=== PATIENT | male | born 1950 | race Two or more races ===

== ENCOUNTER 2020-01-22 11:08 | Inpatient (IN) | payer OTHER ==
[~2020-01-22] VITALS: Ht 162.6 cm; Wt 74.8 kg
--- NOTE | 2020-01-22 11:15 | NUR ---
sent by PMD Dr. Donato for paracentesis. Patient a/ox4, breathing even and unlabored, no sob noted. Needs attended. Kept comfortable.
[2020-01-22] MEDS ORDERED: ONDANSETRON HCL/PF 4 MG/2 ML VIAL ONE (11:41)
--- NOTE | 2020-01-22 11:51 | NUR ---
PATIENT TAKEN TO CT
[2020-01-22 11:55] LABS: BASOPHILS # (AUTO) 0.1 /CMM (0.0-0.2); BASOPHILS % (AUTO) 0.2 % (0.0-2.0); EOSINOPHILS % (AUTO) 0.1 % (0.0-6.0); HEMATOCRIT 25 % (39-51); HEMOGLOBIN 7.5 g/dL (13.5-17.5); LYMPHOCYTES # (AUTO) 4.1 /CMM (0.8-4.8); LYMPHOCYTES % (AUTO) 12.3 % (20.0-44.0); MEAN CORPUSCULAR HGB CONC 30 g/dl (31.0-36.0); MEAN CORPUSCULAR VOLUME 109 fL (80-96); MONOCYTES # (AUTO) 2.1 /CMM (0.1-1.30); MONOCYTES % (AUTO) 6.3 % (2.0-12.0); NEUTROPHILS # (AUTO) 27.2 /CMM (1.8-8.9); NEUTROPHILS % (AUTO) 81.1 % (43.0-81.0); PLATELET COUNT (AUTO) 84 /CMM (150-450); RED BLOOD CELL COUNT(AUTO) 2.26 MIL/uL (4.5-6.0)
[2020-01-22 11:59] LABS: WHITE BLOOD COUNT (AUTO) 33.5 K/uL (4.3-11.0)
[2020-01-22] MEDS ORDERED: IV NS 0.9% 1,000 ML BAG IV ONE (12:00)
[2020-01-22] MEDS ORDERED: ONDANSETRON HCL/PF 4 MG/2 ML VIAL IVP ONE (12:00)
[2020-01-22 12:07] LABS: CALCIUM, SERUM 8.6 mg/dL (8.5-10.1); CREATININE 1.3 mg/dL (0.6-1.3); POTASSIUM 4.9 mmol/L (3.5-5.1)
[2020-01-22 12:22] LABS: ALBUMIN 2.3 g/dL (3.4-5.0); BILIRUBIN,DIRECT 0.3 mg/dL (0.0-0.2); BILIRUBIN,TOTAL 0.6 mg/dL (0.2-1.0)
[2020-01-22 13:02] LABS: BAND % (MANUAL) 1 % (0.0-5.0); LYMPHOCYTES % (MANUAL) 12 % (16-48); MONOCYTES % (MANUAL) 4 % (0-11.0); NEUTROPHILS % (MANUAL) 83 (42-76)
--- NOTE | 2020-01-22 13:45 | NUR ---
BLOOD TRANSFUSION STARTED.
--- NOTE | 2020-01-22 14:01 | NUR ---
BLOOD TRANSFUSION INFUSING NO ADVERSE REACTION. VITALS STABLE. PATIENT DENIES PAIN AT THIS TIME.
--- NOTE | 2020-01-22 15:52 | NUR ---
REPORT GIVEN TO BHUPINDER LUGO FOR SURESH. PATIENT TRANSFERRED TO ROOM 315-1 VIA ACLS PROTOCOL. NO DISTRESS NOTED.
[2020-01-22 16:00] VITALS: BP 142/96
--- NOTE | 2020-01-22 16:00 | NUR ---
ADMIT FROM ER PT CAME UP TO UNIT FROM ER AT 1600. BROUGHT IN VIA GURNEY BY ER-RN. PT 'S ADMITTING DX IS ANEMIA AND ASCITES REQUIRING PARACENTESIS. HX OF METASTATIC PANCREATIC CANCER ON CHEMOTHERAPY. PT STATES THAT HIS LAST CHEMO WAS ON 01/15/20. HX OF TRIPLE BYPASS SURGERY, DM, AND HIV POSITIVE STATUS. PT ALLERGIC TO SULFA. AOX4. VERY PLEASANT. NO CARDIAC OR RESPIRATORY DISTRESS NOTED. NO SOB NOTED. SATURATING WELL ON ROOM AIR WITH 97% O2 SAT. PT WAS HOOKED UP ON CARDIAC TELE MONITOR, SHOWING SINUS RHYTHM WITH HR OF 80S. CONTINENT OF BOWEL AND BLADDER. SKIN/BODY CHECK DONE. PT WAS NOTED WITH DRY PATCHES ON SKIN ON THE R AND L FOOT WELL BILATERAL LOWER EXT +2 PITTING EDEMA. PT IS AMBULATORY WITH USE OF CANE. IV ACCESS NOTED ON RFA G20. PER ER NURSE PT RECEIVED 1 UNIT OF PRBCS AT THE ER. PT ON SOFT DIET. NO COMPLAINTS OF PAIN OR DISCOMFORT AT THIS TIME. PT HAS NO OTHER COMPLAINTS. ORIENTED PT TO UNIT AND ROOM. SAFETY PRECAUTIONS IN PLACE. BED LOCKED AND IN LOW POSITION. SIDE RAILS UP X2. BED ALARM ON. CALL LIGHT WITHIN REACH. INSTRUCTED AND ADVISED PT TO UTILIZE CALL BUTTON AND ASK FOR HELP FROM NURSING STAFF IF WANTING TO GET UP FROM BED. PT AGREED. WILL CONTINUE TO MONITOR.
--- NOTE | 2020-01-22 16:15 | NUR ---
NOTIFIED NOTIFIED DR. CHICHI BAZZI OF PTS ARRIVAL TO THE UNIT. PER HE WILL PUT ADMITTING ORDERS IN.
[2020-01-22 16:36] VITALS: BP 142/66
[2020-01-22] MEDS ORDERED: Z GUARD REMEDY 2 OZ OINT TP PRN (18:30)
[2020-01-22] MEDS ORDERED: ACETAMINOPHEN 325 MG TABLET PO PRN (18:30)
[2020-01-22] MEDS ORDERED: ONDANSETRON HCL/PF 4 MG/2 ML VIAL IVP PRN (18:30)
[2020-01-22] MEDS ORDERED: ENOXAPARIN SODIUM 40 MG/0.4 ML DISP.SYRIN SQ SCH (18:30)
--- NOTE | 2020-01-22 19:30 | NUR ---
BUTTON MACHINE OPERATOR CLOSING NOTES PT IN BED AWAKE ALERT AND ORIENTED X4. RESTING COMFORTABLY IN BED. NO CARDIAC OR RESPIRATORY DISTRESS NOTED. NO SOB NOTED. NO COMPLAINTS OF PAIN OR DISCOMFORT. ON TELE GLOBE TESTER SHOWING SINUS RHYTHM WITH HR OF 80S. IV ACCESS NOTED ON R FOREARM G20. INTACT AND PATENT AND FLUSHING WELL. NO S/S OF INFECTION OR INFILTRATION NOTED. SAFETY PRECAUTIONS IN PLACE. BED LOCKED AND IN LOW POSITION. SIDE RAILS UP. BED ALARM ON. CALL LIGHT WITHIN REACH. ENDORSED TO MACHINE PROGRAMMER NURSE.
--- NOTE | 2020-01-22 19:45 | NUR ---
RN OPEN NOTES PATIENT IS LAYING IN BED. NO COMPLAINTS OF PAIN AT THE MOMENT. ON RA, NO SOB/ ACUTE RESPIRATORY DISTRESS NOTED. BED IS IN LOWEST LOCKED POSITION WITH SIDE RAILS UP X2, SEMI FOWLERS. CALL LIGHT IS WITHIN REACH. WILL CONTINUE TO MONITOR.
[2020-01-22 20:00] VITALS: BP 144/89
[2020-01-23] VITALS: BP 140/81
[2020-01-23 04:00] VITALS: BP 136/82
--- NOTE | 2020-01-23 06:42 | NUR ---
RN CLOSE NOTES PATIENT IS LAYING IN BED. A/O X4. ON RA, NO SOB/ ACUTE RESPIRATORY DISTRESS NOTED. IV ON R FOREARM #20G IS PATENT AND INTACT. NO COMPLAINTS OF PAIN AT THE MOMENT. AMBULATORY WITH CANE/ ASSISTANCE. BED IS IN LOWEST LOCKED POSITION WITH SIDE RAILS UP X2, SEMI FOWLERS. CALL LIGHT IS WITHIN REACH. WILL ENDORSE TO AM NURSE.
[2020-01-23] MEDS ORDERED: AMLO2.5T2 PO (07:03)
[2020-01-23] MEDS ORDERED: LEVO137T24 PO (07:03)
[2020-01-23] MEDS ORDERED: LOSA25TA27 PO (07:03)
[2020-01-23] MEDS ORDERED: CARV3.122 PO (07:03)
--- NOTE | 2020-01-23 07:30 | NUR ---
CHIEF DRAFTER NOTES PT IN BED, AWAKE, ALERT AND ORIENTED, NO COMPLAINT OF PAIN, RESPIRATIONS NORMAL, CALL LIGHT WITHIN REACH, PLAN FOR US GUIDED PARACENTESIS THIS MORNING, PT INFORMED, NEEDS ATTENDED.
[2020-01-23 08:00] VITALS: BP 136/83
[2020-01-23 08:30] LABS: BASOPHILS % (AUTO) 0.2 % (0.0-2.0); EOSINOPHILS % (AUTO) 0.2 % (0.0-6.0); HEMATOCRIT 27 % (39-51); HEMOGLOBIN 8.5 g/dL (13.5-17.5); LYMPHOCYTES # (AUTO) 4.1 /CMM (0.8-4.8); MEAN CORPUSCULAR HGB CONC 32 g/dl (31.0-36.0); MEAN CORPUSCULAR VOLUME 103 fL (80-96); MONOCYTES # (AUTO) 2.3 /CMM (0.1-1.30); MONOCYTES % (AUTO) 9.2 % (2.0-12.0); NEUTROPHILS # (AUTO) 18.9 /CMM (1.8-8.9); NEUTROPHILS % (AUTO) 74.4 % (43.0-81.0); PLATELET COUNT (AUTO) 83 /CMM (150-450); RED BLOOD CELL COUNT(AUTO) 2.61 MIL/uL (4.5-6.0); WHITE BLOOD COUNT (AUTO) 25.4 K/uL (4.3-11.0)
[2020-01-23 08:33] LABS: ALBUMIN 2.2 g/dL (3.4-5.0); BILIRUBIN,TOTAL 0.6 mg/dL (0.2-1.0); CALCIUM, SERUM 8.5 mg/dL (8.5-10.1); CREATININE 1.2 mg/dL (0.6-1.3); MAGNESIUM 1.9 mg/dL (1.8-2.4); PHOSPHORUS 4.2 mg/dL (2.5-4.9); POTASSIUM 4.8 mmol/L (3.5-5.1); TOTAL PROTEIN, SERUM 5.7 g/dL (6.4-8.2)
[2020-01-23 09:58] LABS: BAND % (MANUAL) 5 % (0.0-5.0); LYMPHOCYTES % (MANUAL) 12 % (16-48); MONOCYTES % (MANUAL) 6 % (0-11.0); NEUTROPHILS % (MANUAL) 77 (42-76)
--- NOTE | 2020-01-23 10:17 | NUR ---
SWITCHBOARD MECHANIC NOTES PT COMPLETED US GUIDED PARACENTESIS, TOLERATED WELL, OBTAINED 5300 ML OF CLEAR, SURAJ COLORED FLUID, SENT SPECIMEN TO LAB FOR ANALYSIS, PER PT HE IS DIABETIC, DR. BAZZI INFORMED, ORDERED ACCUCHECKS WITH SLIDING SCALE AND LANTUS AT BEDTIME.
[2020-01-23] MEDS ORDERED: DEXTROSE 50%-WATER 50 ML DISP.SYRIN IV PRN (10:30)
[2020-01-23] MEDS ORDERED: INSULIN REGULAR, HUMAN 100 UNIT/ML 3 ML VIAL SQ PRN (10:30)
[2020-01-23 12:00] VITALS: BP 127/83
[2020-01-23] MEDS ORDERED: BLOOD SUGAR DIAGNOSTIC 1 EACH STRIP IN SCH (12:00)
[2020-01-23 16:00] VITALS: BP 135/82
--- NOTE | 2020-01-23 17:37 | NUR ---
BEAMING INSPECTOR NOTES PT AWAKE, SITTING IN BED, NO COMPLAINT OF PAIN OR ANY DISCOMFORT, NOT IN DISTRESS, RECEIVED DISCHARGE ORDER FROM DR. BAZZI, PT INFORMED, DISCHARGE AND MEDICATION INSTRUCTIONS GIVEN TO PT, PT TO FOLLOW UP WITH DR. DUKE, VERBALIZED UNDERSTANDING, BELONGINGS ACCOUNTED FOR, ASSISTED PT TO HOSPITAL LOBBY VIA WHEELCHAIR, PICKED UP BY FAMILY MEMBER VIA PRIVATE CAR, LEFT IN STABLE CONDITION.
[2020-01-23] MEDS ORDERED: INSULIN GLARGINE, 100 UNIT/ML CARTRIDGE SQ SCH (22:00)
== END 2020-01-23 17:30 | disposition home or self-care (01) | DRG 436 ==
LOC: ER 11:08 → TELE 14:50
PROVIDERS: ADMIT Nurse Practitioner Acute Care; ATTEND Nurse Practitioner Acute Care
PROC: 30233N1 Transfusion of Nonautologous Red Blood Cells into Peripheral Vein, Percutaneous Approach (ICD-10-PCS; principal; 2020-01-22)
PROC: 0W9G3ZZ Drainage of Peritoneal Cavity, Percutaneous Approach (ICD-10-PCS; 2020-01-23)
DX: C25.9 Malignant neoplasm of pancreas, unspecified (principal); D68.59 Other primary thrombophilia; E44.1 Mild protein-calorie malnutrition; R18.8 Other ascites; D64.81 Anemia due to antineoplastic chemotherapy; D69.6 Thrombocytopenia, unspecified; I25.10 Atherosclerotic heart disease of native coronary artery without angina pectoris; D72.829 Elevated white blood cell count, unspecified; Z95.1 Presence of aortocoronary bypass graft; Z92.21 Personal history of antineoplastic chemotherapy; E11.9 Type 2 diabetes mellitus without complications; I10 Essential (primary) hypertension; Z88.2 Allergy status to sulfonamides; D63.0 Anemia in neoplastic disease; D75.89 Other specified diseases of blood and blood-forming organs
CPT/HCPCS: 36415; 76942-TC; 80048-TC; 80053-TC; 80061-TC; 80076-TC; 82962-TC; 83690-TC; 83735-TC; 84100-TC; 85025-TC; 85730-TC; 86850-TC; 86921-TC; 87070-TC; 87081-TC; 89051-TC; G0378; J1815; J2405; J7030; J7040; P9016-BL

== ENCOUNTER 2020-03-21 15:13 | Inpatient (IN) | payer OTHER ==
[~2020-03-21] VITALS: Ht 165.1 cm; Wt 74.8 kg
[~2020-03-21 15:13] MED LIST: AMLO2.5T2 PO; CARV3.122 PO; LEVO137T24 PO; LOSA25TA27 PO
--- NOTE | 2020-03-21 15:30 | NUR ---
patient michael from Dr. Donato office c/o generalized weakness. Connected to the monitor and pulse ox. kept comfortable, will continue to monitor accordingly.
[2020-03-21] MEDS ORDERED: RALT400T PO (15:55)
[2020-03-21] MEDS ORDERED: AMLO10TA4 PO (15:55)
[2020-03-21] MEDS ORDERED: CARV3.122 PO (15:55)
[2020-03-21] MEDS ORDERED: LEVO200T8 PO (15:55)
[2020-03-21] MEDS ORDERED: LOSA100T31 PO (15:55)
[2020-03-21] MEDS ORDERED: IV NS 0.9% 500 ML BAG IV ONE ×2 (16:00→19:00)
[2020-03-21] MEDS ORDERED: ABACAVIR PO (16:00)
[2020-03-21 16:18] LABS: BASOPHILS % (AUTO) 0.1 % (0.0-2.0); EOSINOPHILS % (AUTO) 0.1 % (0.0-6.0); HEMATOCRIT 30 % (39-51); HEMOGLOBIN 9.4 g/dL (13.5-17.5); LYMPHOCYTES # (AUTO) 1.4 /CMM (0.8-4.8); LYMPHOCYTES % (AUTO) 7.4 % (20.0-44.0); MEAN CORPUSCULAR HGB CONC 31 g/dl (31.0-36.0); MEAN CORPUSCULAR VOLUME 107 fL (80-96); MONOCYTES # (AUTO) 0.1 /CMM (0.1-1.30); MONOCYTES % (AUTO) 0.6 % (2.0-12.0); NEUTROPHILS # (AUTO) 16.9 /CMM (1.8-8.9); NEUTROPHILS % (AUTO) 91.8 % (43.0-81.0); PLATELET COUNT (AUTO) 246 /CMM (150-450); WHITE BLOOD COUNT (AUTO) 18.4 K/uL (4.3-11.0)
[2020-03-21 16:25] LABS: CALCIUM, SERUM 7.6 mg/dL (8.5-10.1); CREATININE 2.3 mg/dL (0.6-1.3); POTASSIUM 5.5 mmol/L (3.5-5.1)
[2020-03-21 16:37] LABS: BILIRUBIN,DIRECT 0.5 mg/dL (0.0-0.2); BILIRUBIN,TOTAL 0.7 mg/dL (0.2-1.0)
[2020-03-21 16:38] LABS: ALBUMIN 1.3 g/dL (3.4-5.0)
--- NOTE | 2020-03-21 16:49 | NUR ---
sent body fluids (ascites) to lab
[2020-03-21 17:03] LABS: BAND % (MANUAL) 6 % (0.0-5.0); LYMPHOCYTES % (MANUAL) 3 % (16-48); MONOCYTES % (MANUAL) 1 % (0-11.0); NEUTROPHILS % (MANUAL) 90 (42-76)
[2020-03-21] MEDS ORDERED: CEFTRIAXONE 2 G in IV D5W 50 ML IV ONE (18:00)
[2020-03-21] MEDS ORDERED: PIPERACILLIN /TAZOBACTAM 2.25 G in IV D5W 50 ML IV ONE (18:00)
[2020-03-21 18:22] LABS: APPEARANCE,URINE Clear (CLEAR); BILIRUBIN,URINE Negative (NEGATIVE); BLOOD, URINE Negative Ery/uL (NEGATIVE); COLOR,URINE Yellow (YELLOW); KETONES,URINE Negative (NEGATIVE); LEUKOCYTE ESTERASE ,URINE Negative (NEGATIVE); NITRITE, URINE Negative (NEGATIVE); PH,URINE 5.5 (5.0-8.0); PROTEIN,URINE Negative (NEGATIVE); UGLUCOSE Negative (NEGATIVE)
--- NOTE | 2020-03-21 18:39 | NUR ---
CALLED NURSING SUP FOR TELE BED.
[2020-03-21] MEDS ORDERED: ALBUMIN 25% 100 ML IV ONE (18:59)
[2020-03-21] MEDS ORDERED: ALBUMIN 25% 12.5 GM/50 ML BOTTLE IV ONE ×2 (19:00)
[2020-03-21] MEDS ORDERED: ZOLPIDEM TARTRATE 5 MG TABLET PO PRN (19:30)
[2020-03-21] MEDS ORDERED: ACETAMINOPHEN 325 MG TABLET PO PRN (19:30)
[2020-03-21] MEDS ORDERED: ONDANSETRON HCL/PF 4 MG/2 ML VIAL IVP PRN (19:30)
[2020-03-21] MEDS ORDERED: Z GUARD REMEDY 2 OZ OINT TP PRN (19:30)
--- NOTE | 2020-03-21 19:55 | NUR ---
[facility] ASSIGNMENT 317-1
[2020-03-21] MEDS ORDERED: NITROGLYCERIN 0.4 MG/TAB BOTTLE SL PRN (20:00)
--- NOTE | 2020-03-21 20:08 | NUR ---
PT REC'D 2ND DOSE OF ALBUMIN.
--- NOTE | 2020-03-21 20:18 | NUR ---
REPEAT TROPONIN BEING DRAWN AT THE BEDSIDE BY DIRECTOR STATISTICAL PROGRAMMING.
--- NOTE | 2020-03-21 20:19 | NUR ---
CALLING REPORT TO [facility]
--- NOTE | 2020-03-21 20:21 | NUR ---
CALLING REPORT TO TELE NURSE.
--- NOTE | 2020-03-21 20:45 | NUR ---
HINGING MACHINE OPERATOR OPENING NOTES RECEIVED PATIENT FROM Mahesh, IN A STRETCHER, AWAKE, CONSCIOUS, COOPERATIVE, BREATHING AT ROOM AIR, UNLABORED BREATHING, NO SIGNS OF RESPIRATORY DISTRESS, RIGHT CHEST HUBEER NEEDLE #20G, APPLIED DVT PUMP ON BOTH LEGS, SIDE RAILS UP. Addendum: 03/22/20 at 0119 by LIZZ THOMPSON RN AN EXISTING CATHETER ON RLA FOR PARACENTESIS.
[2020-03-21 21:00] VITALS: BP 99/80
[2020-03-21] MEDS: IV D5/ 0.9% NACL 1,000 ML IV PRN (21:25)
[2020-03-21] MEDS: HEPARIN SODIUM, PORCINE 5000 UNITS/1 ML VIAL SQ SCH (21:30)
[2020-03-21] MEDS ORDERED: VANCOMYCIN 1.25 GM in IV D5W 250 ML IV ONE (23:00)
[2020-03-22] VITALS: BP 98/63
[2020-03-22] MEDS ORDERED: VANCOMYCIN 1 GM VIAL ONE ×2 (00:07→00:10)
[2020-03-22] MEDS: HYDROCODONE/APAP 5/325MG 1 EACH TABLET PO PRN ×2 (03:53→22:42)
[2020-03-22 04:00] VITALS: BP 103/63
[2020-03-22 06:28] LABS: EOSINOPHILS % (AUTO) 0.4 % (0.0-6.0); HEMATOCRIT 26 % (39-51); HEMOGLOBIN 8.1 g/dL (13.5-17.5); LYMPHOCYTES # (AUTO) 1.3 /CMM (0.8-4.8); LYMPHOCYTES % (AUTO) 15.4 % (20.0-44.0); MEAN CORPUSCULAR HGB CONC 32 g/dl (31.0-36.0); MEAN CORPUSCULAR VOLUME 106 fL (80-96); MONOCYTES # (AUTO) 0.1 /CMM (0.1-1.30); MONOCYTES % (AUTO) 1.1 % (2.0-12.0); NEUTROPHILS # (AUTO) 7.2 /CMM (1.8-8.9); NEUTROPHILS % (AUTO) 83.1 % (43.0-81.0); PLATELET COUNT (AUTO) 188 /CMM (150-450); WHITE BLOOD COUNT (AUTO) 8.7 K/uL (4.3-11.0)
--- NOTE | 2020-03-22 06:48 | NUR ---
GEOLOGICAL MANAGER CLOSING NOTES ENDORSED PATIENT FROM E.R., IN A STRETCHER, AWAKE, CONSCIOUS, COOPERATIVE, BREATHING AT ROOM AIR, UNLABORED BREATHING, NO SIGNS OF RESPIRATORY DISTRESS, RIGHT CHEST HUBEER NEEDLE #20G, NO REDNESS OR INFILTRATION NOTED, DVT PUMP ON BOTH LEGS, SIDE RAILS UP FOR SAFETY, DUE MEDS GIVEN, PAIN MED GIVEN ONCE.
--- NOTE | 2020-03-22 07:00 | NUR ---
alert and oriented x4.pleasant,no complaints offered.iv infusing.
[2020-03-22 07:13] LABS: CALCIUM, SERUM 7.5 mg/dL (8.5-10.1); CREATININE 2.2 mg/dL (0.6-1.3); MAGNESIUM 2.7 mg/dL (1.8-2.4); PHOSPHORUS 4.8 mg/dL (2.5-4.9); POTASSIUM 5.1 mmol/L (3.5-5.1)
[2020-03-22 07:14] LABS: THYROID STIMULATING HORMONE 1.577 uIU/mL (0.358-3.74)
[2020-03-22 08:00] VITALS: BP 91/58
[2020-03-22] MEDS ORDERED: FEE PK DOSING 1 MIN EA MC ONE (09:28)
[2020-03-22 09:47] LABS: LYMPHOCYTES % (MANUAL) 14 % (16-48); NEUTROPHILS % (MANUAL) 86 (42-76)
[2020-03-22] MEDS: DOCUSATE SODIUM 100 MG CAPSULE PO SCH ×2 (09:54→18:07)
[2020-03-22] MEDS: LEVOTHYROXINE SODIUM 100 MCG TABLET PO SCH (09:54)
[2020-03-22] MEDS: ASPIRIN EC 81 MG TABLET.DR PO SCH (09:55)
[2020-03-22] MEDS: PANTOPRAZOLE 40 MG TABLET.DR PO SCH (09:55)
[2020-03-22] MEDS: RALTEGRAVIR POTASSIUM 400 MG TABLET PO SCH (09:55)
[2020-03-22] MEDS: HEPARIN SODIUM, PORCINE 5000 UNITS/1 ML VIAL SQ SCH ×2 (10:42→20:52)
[2020-03-22] MEDS: IV D5/ 0.9% NACL 1,000 ML IV PRN ×2 (15:49→19:40)
[2020-03-22 16:00] VITALS: BP 111/63
--- NOTE | 2020-03-22 16:30 | NUR ---
no change in status,pt. contacting significant other to obtain abacavir.
[2020-03-22] MEDS: CEFTRIAXONE 2 G in IV D5W 100 ML IV SCH (18:07)
--- NOTE | 2020-03-22 19:00 | NUR ---
RN NOTES: RECEIVED AWAKE ON BED IN SEMI FOWLERS POSITION,A/OX4, CONVERSANT, ABLE TO MAKE NEEDS KNOWN, NON LABORED BREATHING, NO PAIN OR DISCOMFORT, PER ENDORSEMENT S/P PARACENTESIS AND 3L WAS OUT, RIGHT UPPER CHEST CASSIDY NEEDLE G#20, WITH IVF OF D5NS AT 75 ML/HR VIA INFUSION PUMP, CONTINENT, USING URINAL, ORIENTED TO UNIT AND STAFF, FALL SAFETY AND ASPIRATION PRECAUTION OBSERVED, KEPT CALL LIGHT WITHIN EASY REACH. HE WAS WAITING FOR HIS ABACAVIR MEDICATION.EXPLAINED TO HIM WE ARE WAITING FOR PHARMACY TO PUT IN ORDER AND WE WILL GIVE HIS MEDICATION.
[2020-03-22 20:00] VITALS: BP 98/60
[2020-03-22] MEDS: ABACAVIR PO SCH (20:49)
[2020-03-22] MEDS: LAMIVUDINE PO SCH (20:49)
--- NOTE | 2020-03-22 22:05 | NUR ---
RN NOTES: -CALLS AND NEEDS ANTICIPATED, HE WAS GLAD THAT HIS HOME MEDICATION(ABACAVIR) WAS GIVEN AT 2100, KEPT CALL LIGHT WITHIN EASY REACH.
[2020-03-22] MEDS: VANCOMYCIN 1 GM in IV D5W 250 ML IV SCH (22:21)
--- NOTE | 2020-03-22 22:25 | NUR ---
RN NOTES: -CANNOT SCAN THE BARCODE FOR VANCOMYCIN 1 GRAM, MANUALLY ENTERED THE BARCODE [id number].
--- NOTE | 2020-03-22 22:42 | NUR ---
RN NOTES: -ABLE TO USE URINAL WITH ASSISTANCE, AFTER HE PEE, HE HAD PAIN 7/10, OFFERED PAIN MEDICATION, HE REQUEST FOR ORAL PILL,BP-100/60 WI-85 RR-20, NON PHARMACOLOGIC INTERVENTION RENDERED, WARM BLANKET GIVEN, SOFT MUSIC PLAYED AND KEPT CALL LIGHT WITHIN EASY REACH.
--- NOTE | 2020-03-22 23:05 | NUR ---
RN NOTES: DR. DUKE(ONCOLOGIST) CALLED AND CHECKED THE PATIENT, RELAYED LATEST V/S AND HE WAS GIVEN PAIN MEDICATION, NO NEW ORDERS, WILL CONTINUE TO MONITOR PER HE LOOKS MORE STABLE NOW.
[2020-03-23] MEDS: MORPHINE SULFATE INJ 2 MG/ML DISP.SYRIN IV PRN ×2 (00:50→22:24)
--- NOTE | 2020-03-23 00:58 | NUR ---
RN NOTES: CANT SLEEP, COMPLAINED OF ABDOMINAL PAIN 06/14, REQUEST FOR STRONGER MEDICATION, BP-95/60 VA-85 RR-18,NON PHARMACOLOGIC INTERVENTION RENDERED.
[2020-03-23 06:48] LABS: CALCIUM, SERUM 7.6 mg/dL (8.5-10.1); POTASSIUM 4.8 mmol/L (3.5-5.1)
--- NOTE | 2020-03-23 06:49 | NUR ---
RN NOTES: ABLE TO SLEEP AND REST WELL AFTER HIS PAIN MEDICATION, NO BM, URINE OUTPUT 450CC, WITH IVF D5NS AT 75 ML/HR ONGOING, FOR BLOOD TEST AND CXR THIS MORNING.NON LABORED BREATHING, REMAIN STABLE THROUGHOUT THE NIGHT, HE WAS RELIEVED FROM HIS PAIN.MORNING CARE DONE,ENDORSED FOR CONTINUITY OF CARE.
[2020-03-23 07:20] LABS: IRON, SERUM 57 ug/dl (50-175); TOTAL IRON BINDING CAPACITY 120 ug/dl (250-450)
[2020-03-23 07:29] LABS: FERRITIN 1544 ng/mL (8-388)
--- NOTE | 2020-03-23 07:30 | NUR ---
PATIENT RECEIVED RESTING COMFORTABLY IN BED WITH EYES CLOSED. NO S/S OR C/O PAIN OR DISTRESS NOTED. SIDERAILS UP X2, CALL LIGHT LEFT WITHIN REACH. WILL CONTINUE PLAN OF CARE.
[2020-03-23 08:00] VITALS: BP 95/66
[2020-03-23] MEDS: FOLIC ACID 1 MG TABLET PO SCH (08:33)
[2020-03-23] MEDS: ABACAVIR PO SCH ×2 (08:33→17:23)
[2020-03-23] MEDS: LAMIVUDINE PO SCH ×2 (08:33→17:23)
[2020-03-23] MEDS: ASPIRIN EC 81 MG TABLET.DR PO SCH (08:34)
[2020-03-23] MEDS: PANTOPRAZOLE 40 MG TABLET.DR PO SCH (08:34)
[2020-03-23] MEDS: LEVOTHYROXINE SODIUM 100 MCG TABLET PO SCH (08:34)
[2020-03-23] MEDS: RALTEGRAVIR POTASSIUM 400 MG TABLET PO SCH (08:34)
[2020-03-23] MEDS: DOCUSATE SODIUM 100 MG CAPSULE PO SCH ×2 (08:34→17:23)
[2020-03-23] MEDS: HEPARIN SODIUM, PORCINE 5000 UNITS/1 ML VIAL SQ SCH ×3 (08:45→21:03)
[2020-03-23] MEDS ORDERED: DEXTROSE 50%-WATER 50 ML DISP.SYRIN IV PRN (13:30)
[2020-03-23 14:57] LABS: APPEARANCE,URINE CLEAR (CLEAR); BILIRUBIN,URINE NEGATIVE (NEGATIVE); BLOOD, URINE NEGATIVE Ery/uL (NEGATIVE); COLOR,URINE YELLOW (YELLOW); KETONES,URINE NEGATIVE (NEGATIVE); LEUKOCYTE ESTERASE ,URINE NEGATIVE (NEGATIVE); NITRITE, URINE NEGATIVE (NEGATIVE); PH,URINE 5.5 (5.0-8.0); PROTEIN,URINE NEGATIVE (NEGATIVE); UGLUCOSE NEGATIVE (NEGATIVE)
[2020-03-23 15:02] LABS: CREATININE, URINE 98.2 MG/DL (30.0-125.0); URINE TOTAL PROTEIN 45.9 mg/dL (0-11.9)
[2020-03-23 15:39] LABS: BACTERIA,URINE Rare /HPF (None Seen); RBC,URINE 0-2 /HPF (0-2); WBC,URINE 0-2 /HPF (0-3)
[2020-03-23 15:40] LABS: SQUAMOUS EPITHELIAL CELL,UR 0-2 /HPF (None Seen)
[2020-03-23 16:00] VITALS: BP 104/69
[2020-03-23 16:01] LABS: EOSINOPHIL,URINE None Seen
--- NOTE | 2020-03-23 16:21 | NUR ---
Spoken to RN today regarding U/S Guided Paracentesis. I advised him that it will be done tomorrow due to no radiologist onsite. Patient also on blood thinners Heparin in which it will be withheld tomorrow for the procedure.
[2020-03-23] MEDS: BLOOD SUGAR DIAGNOSTIC 1 EACH STRIP VI SCH ×2 (17:23→21:17)
[2020-03-23] MEDS: CEFTRIAXONE 2 G in IV D5W 100 ML IV SCH (17:23)
[2020-03-23] MEDS: INSULIN REGULAR, HUMAN 100 UNIT/ML 3 ML VIAL SQ PRN (17:25)
--- NOTE | 2020-03-23 18:44 | NUR ---
CHANGE OF SHIFT REPORT PT RESTING COMFORTABLY IN BED. NO S/S OR C/O PAIN OR DISTRESS NOTED. SIDE RAILS UP X2, CALL LIGHT LEFT WITHIN REACH. PT KEPT CLEAN, DRY, AND COMFORTABLE. NO SIGNIFICANT CHANGES SINCE PREVIOUS SHIFT. WILL GIVE REPORT TO JOSH LUGO.
--- NOTE | 2020-03-23 19:30 | NUR ---
MS RN OPENING NOTES RECEIVED PATIENT FROM MORNING SHIFT, ALERT AND ORIENTED X 4. VERBALLY RESPONSIVE AND ABLE TO FOLLOW DIRECTIONS. BREATHING REGULAR AND UNLABORED ON ROOM AIR. RIGHT CHEST CASSIDY NEEDLE INTACT AND PATENT, INFUSING WELL WITH NO BLEEDING OR S/S OF INFECTION NOTED. DENIES SUICIDAL IDEATION OR PAIN/DISCOMFORT AT THIS TIME. ABDOMINAL PARACENTESIS ACCESS SITE INTACT WITH CLEAN AND DRY DRESSING. BED LOW AND LOCKED ON SEMI FOWLERS POSITION. CALL LIGHT IN REACH. WILL CONTINUE TO MONITOR.
[2020-03-23 20:00] VITALS: BP 99/74
[2020-03-23 20:26] VITALS: BP 99/74
--- NOTE | 2020-03-23 20:30 | NUR ---
MS RN NOTES RECHECK BODY TEMPERATURE NOTED WITH 99.5, COOLING MEASURES PROVIDED. WILL RECHECK AFTER 1HR.
[2020-03-23] MEDS: *INSULIN REGULAR(HUMULIN R)HUM 100 UNIT/ML VIAL SQ PRN (21:18)
--- NOTE | 2020-03-23 21:30 | NUR ---
MS RN NOTES BS 198mg/dl, 3UNITS REGULAR INSULIN GIVEN SQ. SNACKS PROVIDED ON BEDSIDE. WILL CONTINUE TO MONITOR.
--- NOTE | 2020-03-23 21:30 | NUR ---
MS RN NOTES BODY TEMP 98.3
--- NOTE | 2020-03-23 22:00 | NUR ---
MS RN NOTES PATIENT REFUSED HEPARIN INJECTION, PER HIM AFTER CHEMOTHERAPY HE USUALLY GET HEPARIN SHOT ONCE A DAY. HE GOT ONE DOSE THIS MORNING AND REFUSED THE ONE TONIGHT. RISK AND BENEFITS EXPLAINED. WILL CONTINUE TO MONITOR.
[2020-03-23] MEDS: VANCOMYCIN 1 GM in IV D5W 250 ML IV SCH ×2 (22:02→23:02)
--- NOTE | 2020-03-23 22:30 | NUR ---
MS RN NOTES COMPLAINED OF 8/10 LEFT ABDOMEN PAIN, MORPHINE 2MG GIVEN VIA IV PUSH. NON-PHARMACOLOGICAL INTERVENTIONS PROVIDED. VITAL SIGNS WNL. WILL CONTINUE TO MONITOR.
[2020-03-24] MEDS: HYDROCODONE/APAP 5/325MG 1 EACH TABLET PO PRN ×2 (02:26→23:08)
--- NOTE | 2020-03-24 02:30 | NUR ---
MS RN NOTES COMPLAINED OF 7/10 LEFT ABDOMEN PAIN, NORCO 5/325 GIVEN BY MOUTH. NON-PHARMACOLOGICAL INTERVENTIONS PROVIDED. VITAL SIGNS WNL. WILL CONTINUE TO MONITOR.
[2020-03-24] MEDS: IV D5/ 0.9% NACL 1,000 ML IV PRN (03:29)
[2020-03-24] MEDS: BLOOD SUGAR DIAGNOSTIC 1 EACH STRIP VI SCH ×4 (06:30→21:34)
[2020-03-24] MEDS: INSULIN REGULAR, HUMAN 100 UNIT/ML 3 ML VIAL SQ PRN (06:31)
--- NOTE | 2020-03-24 06:35 | NUR ---
MS RN CLOSING NOTES PATIENT IN BED, ALERT AND ORIENTED X 4. AFEBRILE WITH NO S/S OF DISTRESS OBSERVED. RIGHT CHEST CASSIDY NEEDLE PATENT AND INFUSING WELL. NO COMPLAINTS OF PAIN/DISCOMFORT REPORTED AT THIS TIME. ON NPO EXCEPT MEDS. BS 162mg/dl, NO INSULIN COVERAGE GIVEN. BED LOW AND LOCKED ON SEMI FOWLERS POSITION. CALL LIGHT IN REACH. WILL ENDORSE TO MORNING SHIFT FOR SURESH.
[2020-03-24 07:06] LABS: BASOPHILS % (AUTO) 0.2 % (0.0-2.0); EOSINOPHILS % (AUTO) 0.4 % (0.0-6.0); HEMATOCRIT 32 % (39-51); HEMOGLOBIN 9.8 g/dL (13.5-17.5); LYMPHOCYTES # (AUTO) 2.2 /CMM (0.8-4.8); LYMPHOCYTES % (AUTO) 19.7 % (20.0-44.0); MEAN CORPUSCULAR HGB CONC 31 g/dl (31.0-36.0); MEAN CORPUSCULAR VOLUME 109 fL (80-96); MONOCYTES # (AUTO) 0.4 /CMM (0.1-1.30); MONOCYTES % (AUTO) 3.8 % (2.0-12.0); NEUTROPHILS # (AUTO) 8.3 /CMM (1.8-8.9); NEUTROPHILS % (AUTO) 75.9 % (43.0-81.0); PLATELET COUNT (AUTO) 197 /CMM (150-450); RED BLOOD CELL COUNT(AUTO) 2.92 MIL/uL (4.5-6.0)
[2020-03-24 08:00] VITALS: BP 111/65
--- NOTE | 2020-03-24 08:00 | NUR ---
MS/RN OPENING NOTES Received patient in bed, A&O x 3. No complaints of pain/discomfort at this time. Breathing even and non-labored on RA, no SOB noted. No cardiac distress noted. R chest victoria access noted, patent and intact, and infusing D5NS @ 75cc/hr. Abdomen distention noted. Sensation from all peripheral extremities intact. Kept NPO for possible paracentesis procedure today. Fall precautions maintained. Will continue to monitor for any changes in condition.
[2020-03-24] MEDS: HEPARIN SODIUM, PORCINE 5000 UNITS/1 ML VIAL SQ SCH ×2 (08:31→21:24)
[2020-03-24] MEDS: DOCUSATE SODIUM 100 MG CAPSULE PO SCH ×2 (08:31→17:31)
[2020-03-24] MEDS: ASPIRIN EC 81 MG TABLET.DR PO SCH (08:31)
[2020-03-24] MEDS: FOLIC ACID 1 MG TABLET PO SCH (08:31)
[2020-03-24] MEDS: LEVOTHYROXINE SODIUM 100 MCG TABLET PO SCH (08:31)
[2020-03-24] MEDS: PANTOPRAZOLE 40 MG TABLET.DR PO SCH (08:31)
[2020-03-24] MEDS: ABACAVIR PO SCH ×2 (08:55→17:31)
[2020-03-24] MEDS: RALTEGRAVIR POTASSIUM 400 MG TABLET PO SCH (08:55)
[2020-03-24] MEDS: LAMIVUDINE PO SCH ×2 (08:55→17:31)
[2020-03-24 09:09] LABS: BILIRUBIN,TOTAL 0.6 mg/dL (0.2-1.0); CALCIUM, SERUM 7.6 mg/dL (8.5-10.1); CREATININE 1.9 mg/dL (0.6-1.3); MAGNESIUM 2.8 mg/dL (1.8-2.4); TOTAL PROTEIN, SERUM 4.2 g/dL (6.4-8.2)
[2020-03-24 09:25] LABS: ALBUMIN 1.3 g/dL (3.4-5.0)
--- NOTE | 2020-03-24 11:30 | NUR ---
MS/RN NOTES Since procedure has been cancelled, Dr. Pleitez orders cardiac diet for patient. Rendered order.
--- NOTE | 2020-03-24 11:30 | NUR ---
MS/RN NOTES Paracentesis cancelled, notified Dr. Pleitez regarding pleurx port for ascites drainage.
--- NOTE | 2020-03-24 15:30 | NUR ---
MS/RN NOTES Drained 1025 mL from abdominal ascites using pleurx drainage, will continue to monitor patient for any changes in condition.
[2020-03-24 16:00] VITALS: BP 104/75
[2020-03-24] MEDS: *INSULIN REGULAR(HUMULIN R)HUM 100 UNIT/ML VIAL SQ PRN ×2 (17:35→21:25)
[2020-03-24] MEDS: CEFTRIAXONE 2 G in IV D5W 100 ML IV SCH (18:46)
--- NOTE | 2020-03-24 19:33 | NUR ---
MS/RN OPENING NOTES Patient resting in bed, A&O x 3, VSS. Denies pain/discomfort at this time. Breathing even and non-labored on RA, no SOB noted. No cardiac distress noted. R chest victoria access noted, patent and intact, and infusing D5NS @ 75cc/hr. Abdomen distention noted. Dressing on Pleurx drainage clean, dry, intact. Sensation from all peripheral extremities intact. Fall precautions maintained. Instructed patient to use call light when in need of assistance. Will endorse to welder 2nd shift nurse.
--- NOTE | 2020-03-24 19:34 | NUR ---
CORRECTION: MS/RN CLOSING NOTES BELOW
[2020-03-24 20:00] VITALS: BP 103/67
--- NOTE | 2020-03-24 22:00 | NUR ---
MS RN NOTES BS 255mg/dl, 6UNITS REGULAR INSULIN GIVEN SQ. SNACKS PROVIDED ON BEDSIDE. WILL CONTINUE TO MONITOR.
[2020-03-24] MEDS: VANCOMYCIN 1 GM in IV D5W 250 ML IV SCH (23:07)
--- NOTE | 2020-03-24 23:10 | NUR ---
MS RN NOTES COMPLAINED OF 7/10 LEFT ABDOMEN PAIN, NORCO 5/325 GIVEN BY MOUTH. NON-PHARMACOLOGICAL INTERVENTIONS PROVIDED. VITAL SIGNS WNL. WILL CONTINUE TO MONITOR.
[2020-03-25] MEDS: MORPHINE SULFATE INJ 2 MG/ML DISP.SYRIN IV PRN (03:08)
--- NOTE | 2020-03-25 03:15 | NUR ---
MS RN NOTES COMPLAINED OF 8/10 LEFT ABDOMEN PAIN, MORPHINE 2MG GIVEN VIA IV PUSH. NON-PHARMACOLOGICAL INTERVENTIONS PROVIDED. VITAL SIGNS WNL. WILL CONTINUE TO MONITOR.
--- NOTE | 2020-03-25 06:20 | NUR ---
MS RN CLOSING NOTES PATIENT IN BED, ALERT AND ORIENTED X 4. AFEBRILE WITH NO S/S OF DISTRESS OBSERVED. RIGHT CHEST CASSIDY NEEDLE PATENT AND INFUSING WELL. NO COMPLAINTS OF PAIN/DISCOMFORT REPORTED AT THIS TIME. BS 140mg/dl, 2UNITS REGULAR INSULIN GIVEN SQ. BED LOW AND LOCKED ON SEMI FOWLERS POSITION. CALL LIGHT IN REACH. WILL ENDORSE TO MORNING SHIFT FOR SURESH.
[2020-03-25] MEDS: INSULIN REGULAR, HUMAN 100 UNIT/ML 3 ML VIAL SQ PRN (06:36)
--- NOTE | 2020-03-25 07:30 | NUR ---
MS/RN OPENING NOTES Received patient in bed, A&O x 3. Breathing even and non-labored on RA, no SOB noted. No cardiac distress noted. R chest victoria access noted, patent and intact, and infusing D5NS @ 75cc/hr.Denies any pain/discomfort at this time. Abdomen distention noted. Sensation from all peripheral extremities intact. Fall precautions maintained. Will continue with current medical management.
[2020-03-25 07:54] LABS: EOSINOPHILS % (AUTO) 0.4 % (0.0-6.0); HEMATOCRIT 30 % (39-51); HEMOGLOBIN 9.3 g/dL (13.5-17.5); LYMPHOCYTES # (AUTO) 2.5 /CMM (0.8-4.8); LYMPHOCYTES % (AUTO) 20.6 % (20.0-44.0); MEAN CORPUSCULAR HGB CONC 31 g/dl (31.0-36.0); MEAN CORPUSCULAR VOLUME 107 fL (80-96); MONOCYTES # (AUTO) 0.9 /CMM (0.1-1.30); MONOCYTES % (AUTO) 7.7 % (2.0-12.0); NEUTROPHILS # (AUTO) 8.6 /CMM (1.8-8.9); NEUTROPHILS % (AUTO) 71.3 % (43.0-81.0); PLATELET COUNT (AUTO) 185 /CMM (150-450); RED BLOOD CELL COUNT(AUTO) 2.83 MIL/uL (4.5-6.0); WHITE BLOOD COUNT (AUTO) 12.1 K/uL (4.3-11.0)
[2020-03-25 08:00] VITALS: BP 115/63
[2020-03-25] MEDS: BLOOD SUGAR DIAGNOSTIC 1 EACH STRIP VI SCH ×2 (08:08→12:51)
[2020-03-25] MEDS ORDERED: ENSURE ENLIVE CHOC 237 ML CAN PO SCH (08:30)
[2020-03-25] MEDS: ASPIRIN EC 81 MG TABLET.DR PO SCH (08:31)
[2020-03-25] MEDS: FOLIC ACID 1 MG TABLET PO SCH (08:31)
[2020-03-25] MEDS: LAMIVUDINE PO SCH (08:32)
[2020-03-25] MEDS: LEVOTHYROXINE SODIUM 100 MCG TABLET PO SCH (08:32)
[2020-03-25] MEDS: ABACAVIR PO SCH (08:32)
[2020-03-25] MEDS: PANTOPRAZOLE 40 MG TABLET.DR PO SCH (08:32)
[2020-03-25] MEDS: HEPARIN SODIUM, PORCINE 5000 UNITS/1 ML VIAL SQ SCH (08:33)
[2020-03-25 08:40] LABS: CALCIUM, SERUM 8.1 mg/dL (8.5-10.1); CREATININE 1.9 mg/dL (0.6-1.3); MAGNESIUM 2.6 mg/dL (1.8-2.4); POTASSIUM 5.1 mmol/L (3.5-5.1)
[2020-03-25] MEDS: RALTEGRAVIR POTASSIUM 400 MG TABLET PO SCH (08:40)
[2020-03-25] MEDS: DOCUSATE SODIUM 100 MG CAPSULE PO SCH (08:40)
--- NOTE | 2020-03-25 12:00 | NUR ---
MS/RN NOTES Per Dr. Donato's orders, drain ascites via Pleurx today. Drained 4L of fluid from abdominal ascites. Instructed patient to monitor for s/s of hypotension: dizziness, lightheadedness, blurred vision. Patient denies any s/s during drainage. Will continue to monitor patient for any changes of condition.
[2020-03-25] MEDS: *INSULIN REGULAR(HUMULIN R)HUM 100 UNIT/ML VIAL SQ PRN (12:32)
--- NOTE | 2020-03-25 16:51 | NUR ---
MS/PROFESSOR OF MANAGEMENT NOTES Patient picked up by roommate, Jordi. Patient's VS remain stable. A&O x3. No pain or discomfort noted on discharge, states satisfaction with hospital stay and says "I am going to miss all you guys who took care of me." Breathing even and non-labored on RA. No SOB or cardiac distress noted. R chest victoria needle kept in place for chemotherapy, clean, dry, and intact, and flushing well. Pleurx dressing done, clean, dry, and intact. Sensation from all peripheral extremities remain intact. Photos of skin taken and placed on chart. No skin impairments, only BLE swelling. Discussed about plan of care and discharge instructions, patient verbalized understanding. Patient left facility safely with Jordi.
== END 2020-03-25 16:35 | disposition home health service (06) | DRG 871 ==
LOC: ER 15:18 → TELE 20:10 → MED 03-22 08:46
PROVIDERS: ADMIT Nurse Practitioner Acute Care; ATTEND Nurse Practitioner Acute Care
DX: A41.9 Sepsis, unspecified organism (principal); K65.2 Spontaneous bacterial peritonitis; N17.0 Acute kidney failure with tubular necrosis; I21.4 Non-ST elevation (NSTEMI) myocardial infarction; E43 Unspecified severe protein-calorie malnutrition; J18.9 Pneumonia, unspecified organism; C25.9 Malignant neoplasm of pancreas, unspecified; E87.1 Hypo-osmolality and hyponatremia; R18.8 Other ascites; E87.2 Acidosis; C79.9 Secondary malignant neoplasm of unspecified site; I10 Essential (primary) hypertension; Z88.2 Allergy status to sulfonamides; Z79.899 Other long term (current) drug therapy; Z95.1 Presence of aortocoronary bypass graft; Z79.890 Hormone replacement therapy; N40.0 Benign prostatic hyperplasia without lower urinary tract symptoms; K74.60 Unspecified cirrhosis of liver; I25.10 Atherosclerotic heart disease of native coronary artery without angina pectoris; E87.5 Hyperkalemia; E11.9 Type 2 diabetes mellitus without complications; E03.9 Hypothyroidism, unspecified; D63.8 Anemia in other chronic diseases classified elsewhere; Z92.21 Personal history of antineoplastic chemotherapy; N20.0 Calculus of kidney
CPT/HCPCS: 36415; 71045-TC; 76705-TC; 80048-TC; 80053-TC; 80061-TC; 80076-TC; 80202-TC; 81000-TC; 82570-TC; 82728-TC; 82962-TC; 83540-TC; 83605-TC; 83735-TC; 83880; 84100-TC; 84155-TC; 84300-TC; 84443-TC; 84484-TC; 85025-TC; 85730-TC; 86301; 87040-TC; 87070-TC; 87081-TC; 87086-TC; 89051-TC; 93307-TC; 97110-TC; 97116-TC; 97530-TC; A6253; G0378; J0696; J1644; J1815; J2270; J2543; J3370; J3490; J7040; J7042; J7060; P9047

== ENCOUNTER 2020-04-08 18:41 | Inpatient (IN) | payer OTHER ==
[~2020-04-08] VITALS: Ht 165.1 cm; Wt 67.6 kg
[~2020-04-08 18:41] MED LIST changes: +ABACAVIR PO; +AMLO10TA4 PO; -AMLO2.5T2 PO; -LEVO137T24 PO; +LEVO200T8 PO; +LOSA100T31 PO; -LOSA25TA27 PO; +RALT400T PO
[2020-04-08] MEDS ORDERED: IV NS 0.9% 500 ML BAG IV ONE ×2 (19:00→22:00)
--- NOTE | 2020-04-08 19:00 | NUR ---
assume pt care. pt states sent by onco md for abnormal labs. pt c/o abdominal bloating. denies any pain. gowned and placed on monitor. awaiting md gross.
--- NOTE | 2020-04-08 19:24 | NUR ---
report to material handler 2nd shift nurse inés for briseida.
--- NOTE | 2020-04-08 19:25 | NUR ---
blood collected and sent to lab
[2020-04-08 19:28] LABS: BASOPHILS % (AUTO) 0.1 % (0.0-2.0); EOSINOPHILS % (AUTO) 0.1 % (0.0-6.0); HEMATOCRIT 37 % (39-51); HEMOGLOBIN 11.4 g/dL (13.5-17.5); LYMPHOCYTES # (AUTO) 5.8 /CMM (0.8-4.8); LYMPHOCYTES % (AUTO) 38.4 % (20.0-44.0); MEAN CORPUSCULAR HGB CONC 31 g/dl (31.0-36.0); MEAN CORPUSCULAR VOLUME 108 fL (80-96); MONOCYTES # (AUTO) 1.2 /CMM (0.1-1.30); MONOCYTES % (AUTO) 8.3 % (2.0-12.0); NEUTROPHILS % (AUTO) 53.1 % (43.0-81.0); PLATELET COUNT (AUTO) 303 /CMM (150-450); RED BLOOD CELL COUNT(AUTO) 3.41 MIL/uL (4.5-6.0)
[2020-04-08 20:46] LABS: BILIRUBIN,DIRECT 0.3 mg/dL (0.0-0.2); BILIRUBIN,TOTAL 0.6 mg/dL (0.2-1.0); CALCIUM, SERUM 7.6 mg/dL (8.5-10.1); TOTAL PROTEIN, SERUM 4.4 g/dL (6.4-8.2)
[2020-04-08 20:48] LABS: POTASSIUM 6.7 mmol/L (3.5-5.1)
[2020-04-08 20:49] LABS: ALBUMIN 1.1 g/dL (3.4-5.0)
--- NOTE | 2020-04-08 20:50 | NUR ---
STEPHANIE (PARTNER) [phone] HOME [phone] CELL
--- NOTE | 2020-04-08 21:35 | NUR ---
COVID SWAB COLLECTED AND SENT TO LAB
--- NOTE | 2020-04-08 21:43 | NUR ---
JEFFREY COLLECTED AND SENT TO LAB
[2020-04-08] MEDS ORDERED: DEXTROSE 50%-WATER 50 ML DISP.SYRIN IVP ONE (22:00)
[2020-04-08] MEDS ORDERED: INSULIN REGULAR, HUMAN 100 UNIT/ML 10 ML VIAL IV ONE (22:00)
[2020-04-08] MEDS ORDERED: SODIUM BICARBONATE SYR 50 MEQ/50 ML DISP.SYRIN IV ONE (22:00)
[2020-04-08] MEDS ORDERED: Calcium Gluconate 1GM/10ML 4.65 MEQ in IV NS 0.9% 100 ML IV ONE (22:00)
[2020-04-08] MEDS ORDERED: Calcium Gluconate 0.465 MEQ/ML VIAL IV ONE (22:01)
[2020-04-08] MEDS ORDERED: INSULIN REGULAR, HUMAN 100 UNIT/ML 10 ML VIAL ONE (22:02)
[2020-04-08] MEDS ORDERED: SODIUM BICARBONATE SYR 50 MEQ/50 ML DISP.SYRIN ONE (22:02)
[2020-04-08] MEDS ORDERED: DEXTROSE 50%-WATER 50 ML DISP.SYRIN ONE (22:03)
[2020-04-08 22:08] LABS: APPEARANCE,URINE CLEAR (CLEAR); BILIRUBIN,URINE NEGATIVE (NEGATIVE); BLOOD, URINE NEGATIVE Ery/uL (NEGATIVE); COLOR,URINE YELLOW (YELLOW); KETONES,URINE NEGATIVE (NEGATIVE); LEUKOCYTE ESTERASE ,URINE NEGATIVE (NEGATIVE); NITRITE, URINE NEGATIVE (NEGATIVE); PH,URINE 5.5 (5.0-8.0); PROTEIN,URINE NEGATIVE (NEGATIVE); UGLUCOSE NEGATIVE (NEGATIVE); UROBILINOGEN,URINE 0.2 EU/dL (0.2)
[2020-04-08] MEDS ORDERED: IV NS 0.9% 1,000 ML IV PRN (22:32)
[2020-04-08 22:54] LABS: LYMPHOCYTES % (MANUAL) 25 % (16-48); MONOCYTES % (MANUAL) 8 % (0-11.0); NEUTROPHILS % (MANUAL) 67 (42-76)
[2020-04-08] MEDS ORDERED: MAG HYDROX/AL HYDROX/SIMETH 30 ML UDC PO PRN (23:00)
[2020-04-08] MEDS ORDERED: ACETAMINOPHEN 325 MG TABLET PO PRN (23:00)
[2020-04-08] MEDS ORDERED: CEFTRIAXONE 1 G in IV D5W 50 ML IV SCH (23:00)
[2020-04-08] MEDS ORDERED: MAGNESIUM HYDROXIDE 30 ML UDC PO PRN (23:00)
[2020-04-08] MEDS ORDERED: ZOLPIDEM TARTRATE 5 MG TABLET PO PRN (23:00)
[2020-04-08] MEDS ORDERED: Z GUARD REMEDY 2 OZ OINT TP PRN (23:00)
--- NOTE | 2020-04-08 23:17 | NUR ---
CALL FROM LAB. RAPID COVID NEGATIVE.
--- NOTE | 2020-04-09 00:12 | NUR ---
90/59 P98 99% R 20
[2020-04-09 00:30] VITALS: BP 100/68
--- NOTE | 2020-04-09 00:40 | NUR ---
ADMISSION NOTE PATIENT ADMITTED FROM ER. FOR ACUTE RENAL FAILURE AND HYPERKALEMIA, UNDER LIQUOR BRIDGE OPERATOR YONNY. PT WAS REFERRED TO ER BY ONCOLOGIST DR. DUKE WHOM IS TREATING PATIENT WITH CHEMO FOR METASTIC STAGE 4 PANCREATIC CANCER. PT AX AXO X4 DENIES PAIN AT THIS TIME. PT NOTED TO HAVE ASCITES. STATES HE IS TOO WEAK TO AMBULATE WITHOUT MAX ASSIST. PROVIED WITH URINAL. REVIEWED POC. ADMISSION ASSESSMENT TO BE PERFORMED. PT ORIENTED TO ROOM. BED DOWN LOCKED SRX2 VERBALZIED UNDERSTANDING TO CALL FOR ASSISTANCE NEEDED. TELE APPLIED PT SR IN 70'S.
[2020-04-09] MEDS ORDERED: CEFTRIAXONE 1 G VIAL ONE (00:42)
[2020-04-09] MEDS: MORPHINE SULFATE INJ 2 MG/ML DISP.SYRIN IV PRN ×3 (02:02→21:19)
[2020-04-09 04:00] VITALS: BP 86/61
[2020-04-09] MEDS: HYDROCODONE/APAP 5/325MG 1 EACH TABLET PO PRN ×2 (04:34→20:02)
[2020-04-09 06:31] LABS: BASOPHILS % (AUTO) 0.2 % (0.0-2.0); EOSINOPHILS % (AUTO) 0.1 % (0.0-6.0); HEMATOCRIT 32 % (39-51); HEMOGLOBIN 10.2 g/dL (13.5-17.5); LYMPHOCYTES % (AUTO) 39.5 % (20.0-44.0); MEAN CORPUSCULAR HGB CONC 31 g/dl (31.0-36.0); MEAN CORPUSCULAR VOLUME 108 fL (80-96); MONOCYTES # (AUTO) 1.3 /CMM (0.1-1.30); MONOCYTES % (AUTO) 10.4 % (2.0-12.0); NEUTROPHILS # (AUTO) 6.2 /CMM (1.8-8.9); NEUTROPHILS % (AUTO) 49.8 % (43.0-81.0); PLATELET COUNT (AUTO) 262 /CMM (150-450); WHITE BLOOD COUNT (AUTO) 12.5 K/uL (4.3-11.0)
[2020-04-09] MEDS: PANTOPRAZOLE 40 MG TABLET.DR PO SCH (06:38)
[2020-04-09 07:04] LABS: CALCIUM, SERUM 7.5 mg/dL (8.5-10.1); CREATININE 2.7 mg/dL (0.6-1.3); MAGNESIUM 2.6 mg/dL (1.8-2.4); PHOSPHORUS 6.4 mg/dL (2.5-4.9)
--- NOTE | 2020-04-09 07:30 | NUR ---
ms rn received on bed, awake,alert,oriented x3,not in any form of distress, respirations even and unlabored,no sob noted, abdomen soft,distended w/ drainage tube intact,denies pain at this time,all needs attended.
[2020-04-09 08:00] VITALS: BP 84/57
--- NOTE | 2020-04-09 09:00 | NUR ---
ms rn breakfast served,tolerated well.
[2020-04-09] MEDS: HEPARIN SODIUM, PORCINE 5000 UNITS/1 ML VIAL SQ SCH ×2 (10:21→20:04)
[2020-04-09 10:28] LABS: LYMPHOCYTES % (MANUAL) 33 % (16-48); MONOCYTES % (MANUAL) 12 % (0-11.0); NEUTROPHILS % (MANUAL) 55 (42-76)
[2020-04-09] MEDS: CEFTRIAXONE 1 G in IV D5W 50 ML IV SCH (15:08)
[2020-04-09 16:00] VITALS: BP 88/64
--- NOTE | 2020-04-09 16:20 | NUR ---
ms rn new iv site insereted at left hand g24 w/ good venous return.
--- NOTE | 2020-04-09 17:00 | NUR ---
ms rn abdominal drain done w/ 1 liter output, patient's b/p-97/65,hr of 91, tolerating well.
--- NOTE | 2020-04-09 18:00 | NUR ---
ms rn on bed, no distress noted,all needs attended.
[2020-04-09] MEDS: NEPRO VAN 237 ML CAN PO SCH (18:01)
[2020-04-09] MEDS: Sodium Bicarbonate 100 MEQ in IV 1/2NS 1000 ML 1,000 ML IV PRN (18:07)
[2020-04-09 18:16] LABS: BILIRUBIN,TOTAL 0.3 mg/dL (0.2-1.0); CALCIUM, SERUM 7.6 mg/dL (8.5-10.1); CREATININE 2.7 mg/dL (0.6-1.3); MAGNESIUM 2.6 mg/dL (1.8-2.4); PHOSPHORUS 5.9 mg/dL (2.5-4.9); POTASSIUM 5.9 mmol/L (3.5-5.1); TOTAL PROTEIN, SERUM 4.4 g/dL (6.4-8.2)
[2020-04-09 18:25] LABS: ALBUMIN 1.1 g/dL (3.4-5.0)
--- NOTE | 2020-04-09 19:25 | NUR ---
BRASS CUTTER NOTES PATIENT IN BED, AWAKE, ALERT AND ORIENTED X 4. BREATHING EVEN AND UNLABORED ON ROOM AIR. SHOWS NO SIGNS OF ACUTE RESPIRATORY DISTRESS. NO ACUTE PAIN. TELE MONITOR SR/ST WITH PVC. IV ON L WRIST 24G RUNNING NA BICAB AT 50ML/HR. SHOWS NO SIGNS OF INFILTRATION, NO REDNESS. SAFETY PRECAUTIONS IN PLACE. BED IN LOWEST POSITION, LOCKED, AND CALL LIGHT KEPT WITHIN REACH. WILL CONTINUE TO MONITOR.
[2020-04-09 20:00] VITALS: BP 93/70
[2020-04-09] MEDS ORDERED: SODIUM POLYSTYRENE SULFONATE 15 G/60 ML BOTTLE PO ONE (21:00)
[2020-04-09] MEDS ORDERED: DEXTROSE 50%-WATER 50 ML DISP.SYRIN IV PRN (21:00)
--- NOTE | 2020-04-09 21:26 | NUR ---
DRY FINISHER NOTES PATIENT COMPLAINING OF 8/10 PAIN, STATED NORCO DID NOT HELP. BP 113/70 AND HR 73. GIVEN MORPHINE AT 2119. WILL CONTINUE TO MONITOR.
[2020-04-09] MEDS: BLOOD SUGAR DIAGNOSTIC 1 EACH STRIP IN SCH (21:37)
[2020-04-09] MEDS: INSULIN REGULAR, HUMAN 100 UNIT/ML 3 ML VIAL SQ PRN (21:39)
[2020-04-10] VITALS: BP 96/64
[2020-04-10] MEDS: HYDROCODONE/APAP 5/325MG 1 EACH TABLET PO PRN ×2 (00:07→04:39)
[2020-04-10] MEDS: CEFTRIAXONE 1 G in IV D5W 50 ML IV SCH ×2 (01:14→13:45)
[2020-04-10] MEDS: MORPHINE SULFATE INJ 2 MG/ML DISP.SYRIN IV PRN ×3 (01:37→22:59)
[2020-04-10 04:00] VITALS: BP 107/78
[2020-04-10] MEDS: INSULIN REGULAR, HUMAN 100 UNIT/ML 3 ML VIAL SQ PRN ×3 (06:33→21:47)
[2020-04-10] MEDS: ONDANSETRON HCL/PF 4 MG/2 ML VIAL IVP PRN (06:38)
[2020-04-10 06:41] LABS: BASOPHILS % (AUTO) 0.2 % (0.0-2.0); EOSINOPHILS % (AUTO) 0.1 % (0.0-6.0); HEMATOCRIT 37 % (39-51); HEMOGLOBIN 11.3 g/dL (13.5-17.5); LYMPHOCYTES # (AUTO) 7.6 /CMM (0.8-4.8); LYMPHOCYTES % (AUTO) 38.2 % (20.0-44.0); MEAN CORPUSCULAR HGB CONC 31 g/dl (31.0-36.0); MEAN CORPUSCULAR VOLUME 108 fL (80-96); MONOCYTES # (AUTO) 1.9 /CMM (0.1-1.30); MONOCYTES % (AUTO) 9.5 % (2.0-12.0); NEUTROPHILS # (AUTO) 10.4 /CMM (1.8-8.9); PLATELET COUNT (AUTO) 370 /CMM (150-450); RED BLOOD CELL COUNT(AUTO) 3.42 MIL/uL (4.5-6.0); WHITE BLOOD COUNT (AUTO) 19.9 K/uL (4.3-11.0)
--- NOTE | 2020-04-10 07:05 | NUR ---
UNIVERSITY RELATIONS VICE PRESIDENT NOTES PATIENT IN BED, ASLEEP, ALERT AND ORIENTED X 4. BREATHING EVEN AND UNLABORED ON ROOM AIR. SHOWS NO SIGNS OF ACUTE RESPIRATORY DISTRESS. NO ACUTE PAIN. TELE MONITOR SR/ST WITH PVC. IV ON R WRIST 22G RUNNING SODIUM BICAB AT 50ML/HR. SHOWS NO SIGNS OF INFILTRATION, NO REDNESS. ALL DUE MEDICATIONS GIVEN. SAFETY PRECAUTIONS IN PLACE. BED IN LOWEST POSITION, LOCKED, AND CALL LIGHT KEPT WITHIN REACH. WILL ENDORSE TO ONCOMING NURSE
[2020-04-10 07:09] LABS: BILIRUBIN,TOTAL 0.4 mg/dL (0.2-1.0); CALCIUM, SERUM 7.8 mg/dL (8.5-10.1); CREATININE 2.7 mg/dL (0.6-1.3); MAGNESIUM 2.6 mg/dL (1.8-2.4); PHOSPHORUS 6.2 mg/dL (2.5-4.9); POTASSIUM 5.4 mmol/L (3.5-5.1); TOTAL PROTEIN, SERUM 4.3 g/dL (6.4-8.2)
[2020-04-10 07:18] LABS: ALBUMIN 1.1 g/dL (3.4-5.0)
--- NOTE | 2020-04-10 07:30 | NUR ---
COMMUNITY HEALTH EDUCATOR NOTES UNABLE TO ADMINISTER MORPHINE. PT COMPLAINING OF PAIN ON IV. WASTE WITH ANDRES LUGO. WILL CONTINUE TO MONITOR.
[2020-04-10] MEDS: BLOOD SUGAR DIAGNOSTIC 1 EACH STRIP IN SCH ×4 (07:31→21:43)
--- NOTE | 2020-04-10 07:55 | NUR ---
HUMAN SERVICE SPECIALIST NOTES PATIENT ALERT AND ORIENTED X 4. ON ROOM AIR WITH NO SIGNS OF RESPIRATORY DISTRESS AT THIS TIME, WITH EVEN NON-LABORED BREATHING, AND NO SOB NOTED. ON ELECTRONIC PUBLISHER SINUS RHYTHM, 96. SKIN DRY AND WARM TO TOUCH. PLEURAL TUBE/DRAIN INTACT AND NO DRAINAGE OR LEAKAGE PRESENT. PROVIDED COMFORT MEASURES TO PATIENT. INSERT NEW IV ACCESS LINE DUE TO PATIENT STATING THE PREVIOUS SITE CAUSING SHARP PAIN. REMOVED OLD IV ACCESS, CATHETER TIP INTACT AND APPLIED PRESSURE TO SITE. NEW IV LINE ON RIGHT HAND 24 GAUGE INTACT AND PATENT. SAFETY PRECAUTIONS IMPLEMENTED WITH BED LOCKED, BED IN THE LOWEST POSITION, BED ALARM ON, BILATERAL SIDE RAILS UP, AND CALL LIGHT WITHIN EASY REACH OF PATIENT. WILL CONTINUE TO MONITOR PATIENT.
[2020-04-10 08:00] VITALS: BP 108/74
[2020-04-10] MEDS: PANTOPRAZOLE 40 MG TABLET.DR PO SCH (08:42)
[2020-04-10] MEDS: HEPARIN SODIUM, PORCINE 5000 UNITS/1 ML VIAL SQ SCH ×2 (08:44→21:33)
[2020-04-10] MEDS: NEPRO VAN 237 ML CAN PO SCH (09:27)
--- NOTE | 2020-04-10 12:25 | NUR ---
MS RN NOTES PATIENT BLOOD SUGAR 166, NON-ADMINISTERED INSULIN DUE TO PATIENT BEING NPO. WILL CONTINUE TO MONITOR.
--- NOTE | 2020-04-10 14:55 | NUR ---
RN NOTES SPOKE WITH CHICHI BAZZI, HOSPITALIST REGARDING PATIENT'S POTASSIUM LEVEL, 5.4. NO NEW ORDERS AT THIS TIME. WILL CONTINUE TO MONITOR PATIENT.
[2020-04-10 16:00] VITALS: BP 102/69
--- NOTE | 2020-04-10 17:04 | NUR ---
RN NOTES PATIENT'S BLOOD SUGAR 199, PER SLIDING SCALE, ADMINISTERED 3 UNITS OF INSULIN. PROVIDED DINNER TRAY TO PATIENT, WILL CONTINUE TO MONITOR.
--- NOTE | 2020-04-10 18:50 | NUR ---
RN NOTES PATIENT IN BED RESTING COMFORTABLY. ALERT AND ORIENTED X4. ON ROOM AIR WITH NO SIGNS OF RESPIRATORY DISTRESS, WITH EVEN NON-LABORED BREATHING, AND NO SOB NOTED. SKIN KEPT CLEAN AND DRY. IV ACCESS INTACT AND PATENT ON RIGHT HAND. MET ALL OF PATIENT'S NEEDS. INFORMED CHICHI BAZZI DNP, ABOUT MEDICATION RECONCILIATION DUE TO PATIENT ASKING FOR HIS HOME MEDICATION. SAFETY PRECAUTIONS IMPLEMENTED WITH BED LOCKED, BED IN THE LOWEST POSITION, BED ALARM ON, BILATERAL SIDE RAILS UP, AND CALL LIGHT WITHIN EASY REACH OF PATIENT. WILL ENDORSE PLAN OF CARE TO UPCOMING NURSE.
[2020-04-10] MEDS: Sodium Bicarbonate 100 MEQ in IV 1/2NS 1000 ML 1,000 ML IV PRN (18:53)
--- NOTE | 2020-04-10 19:20 | NUR ---
MS RN OPENING NOTES PATIENT AWAKE IN BED. A/OX4; ABLE TO VERBALIZE NEEDS. ON RA. NO C/O SOB OR PAIN AT THIS TIME; BREATHING IS EVEN AND UNLABORED. IV PRESENT ON RIGHT HAND, SIZE 24, INTACT & PATENT WITH BICARB RUNNING AT 50 ML/HR. ABDOMINAL PLEURAL DRAIN PRESENT ON RIGHT LOWER QUADRANT; DRESSING IS DRY AND INTACT. SAFETY MEASURES IN PLACE AND PATIENT'S NEEDS MET. BED LOCKED, SIDE RAILS X2, CALL LIGHT WITHIN REACH. WILL CONTINUE TO MONITOR.
--- NOTE | 2020-04-10 19:23 | NUR ---
MOLECULAR BIOLOGY PROFESSOR NOTES TELE MONITOR READING SINUS TACH; HEART RATE 105
[2020-04-10 20:00] VITALS: BP 98/75
[2020-04-10 22:57] VITALS: BP 106/76
--- NOTE | 2020-04-10 22:59 | NUR ---
SENIOR WIND TURBINE TECHNICIAN NOTES PATIENT C/O OF ABDOMINAL PAIN RATED 8/10. PER PATIENT'S REQUEST ADMINISTERED PRN MORPHINE 2MG IV. VITAL SIGNS - BP: 106/76, HR: 112. SAFETY MEASURES IN PLACE. WILL CONTINUE TO MONITOR.
[2020-04-11] VITALS: BP 94/68
[2020-04-11] MEDS: CEFTRIAXONE 1 G in IV D5W 50 ML IV SCH ×2 (01:26→13:06)
[2020-04-11 04:00] VITALS: BP 100/76
[2020-04-11] MEDS: MORPHINE SULFATE INJ 2 MG/ML DISP.SYRIN IV PRN ×2 (04:44→22:04)
--- NOTE | 2020-04-11 04:45 | NUR ---
COMMERCIAL CORRESPONDENT NOTES PATIENT C/O OF ABDOMINAL PAIN RATED 8/10. PER PATIENT'S REQUEST ADMINISTERED PRN MORPHINE 2MG IV. VITAL SIGNS - BP: 100/76. HR:99. SAFETY MEASURES IN PLACE. WILL CONTINUE TO MONITOR
[2020-04-11] MEDS: PANTOPRAZOLE 40 MG TABLET.DR PO SCH (06:37)
[2020-04-11] MEDS: ONDANSETRON HCL/PF 4 MG/2 ML VIAL IVP PRN (06:37)
[2020-04-11] MEDS: INSULIN REGULAR, HUMAN 100 UNIT/ML 3 ML VIAL SQ PRN ×4 (06:37→22:01)
[2020-04-11] MEDS: BLOOD SUGAR DIAGNOSTIC 1 EACH STRIP IN SCH ×4 (06:38→21:35)
--- NOTE | 2020-04-11 06:57 | NUR ---
DOCUMENT ANALYST CLOSING NOTES PATIENT AWAKE IN BED. A/OX4. TELE MONITOR READING SINUS TACH, HEART RATE 105. ON RA. NO C/O SOB OR PAIN AT THIS TIME; BREATHING IS EVEN AND UNLABORED. IV PRESENT ON RIGHT HAND, SIZE 24, INTACT & PATENT WITH BICARB RUNNING AT 50 ML/HR. SAFETY MEASURES IN PLACE AND PATIENT'S NEEDS MET. BED LOCKED, SIDE RAILS X2, CALL LIGHT WITHIN REACH. WILL ENDORSE TO DAY SHIFT RN PLAN OF CARE.
[2020-04-11 07:01] LABS: CALCIUM, SERUM 7.6 mg/dL (8.5-10.1); CREATININE 3.1 mg/dL (0.6-1.3); POTASSIUM 4.9 mmol/L (3.5-5.1)
--- NOTE | 2020-04-11 07:31 | NUR ---
UI ARCHITECT NOTES PATIENT RECEIVED ALERT AND ORIENTED X 4. ON ROOM AIR WITH NO SIGNS OF RESPIRATORY DISTRESS AT THIS TIME, WITH EVEN NON-LABORED BREATHING, AND NO SOB NOTED. ON SUSTAINABILITY PROJECT MANAGER SINUS RHYTHM, 90'S. SKIN DRY AND WARM TO TOUCH. PLEURAL TUBE/DRAIN INTACT AND NO DRAINAGE OR LEAKAGE PRESENT. PATIENT PRESENTS WITH NO PAIN OR DISCOMFORT AT THIS TIME. IV ACCESS INTACT AND PATENT. SAFETY PRECAUTIONS IMPLEMENTED WITH BED LOCKED, BED IN THE LOWEST POSITION, BED ALARM ON, BILATERAL SIDE RAILS UP, AND CALL LIGHT WITHIN EASY REACH OF PATIENT. WILL CONTINUE TO MONITOR PATIENT.
[2020-04-11 07:58] VITALS: BP 120/76
[2020-04-11] MEDS: NEPRO VAN 237 ML CAN PO SCH (08:59)
[2020-04-11] MEDS: HEPARIN SODIUM, PORCINE 5000 UNITS/1 ML VIAL SQ SCH ×2 (09:00→21:33)
--- NOTE | 2020-04-11 09:35 | NUR ---
MS RN NOTES ABDOMINAL PLEURAL DRAINAGE DONE, WITH 2 LITERS OUTPUT. WILL CONTINUE TO MONITOR PATIENT.
[2020-04-11] MEDS: ALBUMIN 25% 25 GM in PREMIX 1 EA IV SCH ×2 (10:54→17:36)
--- NOTE | 2020-04-11 11:33 | NUR ---
MS RN NOTES PATIENT'S BLOOD SUGAR 228, PER SLIDING SCALE PROTOCOL, 4 UNITS OF INSULIN ADMINISTERED. LUNCH TRAY PROVIDED TO PATIENT. WILL CONTINUE TO MONITOR PATIENT.
[2020-04-11 12:11] LABS: APPEARANCE,URINE SL CLOUDY (CLEAR); BILIRUBIN,URINE SMALL (NEGATIVE); BLOOD, URINE NEGATIVE Ery/uL (NEGATIVE); KETONES,URINE NEGATIVE (NEGATIVE); LEUKOCYTE ESTERASE ,URINE NEGATIVE (NEGATIVE); NITRITE, URINE NEGATIVE (NEGATIVE); PH,URINE 5.5 (5.0-8.0); PROTEIN,URINE NEGATIVE (NEGATIVE); UGLUCOSE NEGATIVE (NEGATIVE); UROBILINOGEN,URINE 0.2 EU/dL (0.2)
[2020-04-11 12:16] LABS: COLOR,URINE AMBER (YELLOW)
[2020-04-11 12:28] LABS: PTH, INTACT 121 pg/mL (15-65)
--- NOTE | 2020-04-11 12:30 | NUR ---
OCCUPATIONAL HEALTH PROFESSIONAL/MED RECON HOME MEDICATION INFO. UPDATED. INFO OBTAINED/VERIFIED FROM THE PATIENT. FRIEND-STEPHANIE WILL BRING HOME MEDICATION SUPPLY LATER TODAY. PRIMARY RN AWARE. PHARMACY AWARE.
[2020-04-11] MEDS ORDERED: ABAC1TAB3 PO (12:50)
[2020-04-11 13:10] LABS: BACTERIA,URINE Rare /HPF (None Seen); RBC,URINE 0-2 /HPF (0-2); SQUAMOUS EPITHELIAL CELL,UR Rare /HPF (None Seen)
[2020-04-11 13:18] LABS: CREATININE, URINE 189.3 MG/DL (30.0-125.0); URINE TOTAL PROTEIN 43.1 mg/dL (0-11.9)
--- NOTE | 2020-04-11 14:45 | NUR ---
MS RN NOTES PATIENT HAD FAMILY DROP OFF HOME MEDICATION. DROPPED OFF MEDICATION TO PHARMACY. PATIENT MADE AWARE. WILL CONTINUE TO MONITOR AT THIS TIME.
[2020-04-11 15:00] LABS: EOSINOPHIL,URINE None Seen
[2020-04-11 15:07] LABS: *SPE A/G RATIO 0.6 (0.7-1.7); *SPE ALBUMIN 1.4 g/dL (2.9-4.4); *SPE ALPHA-1-GLOBULIN 0.4 g/dL (0.0-0.4); *SPE ALPHA-2-GLOBULIN 0.8 g/dL (0.4-1.0); *SPE BETA GLOBULIN 0.8 g/dL (0.7-1.3); *SPE GLOBULIN, TOTAL 2.5 g/dL (2.2-3.9); *SPE M-SPIKE Not Observed g/dL (Not Observed); *SPEGAMMA GLOBULIN 0.6 g/dL (0.4-1.8)
[2020-04-11] MEDS ORDERED: [UNRECOGNIZED DRUG - OTHER] PO SCH (16:00)
[2020-04-11] MEDS ORDERED: [UNRECOGNIZED DRUG - OTHER] PO ONE (16:15)
[2020-04-11] MEDS: EPZICOM PO SCH (16:33)
[2020-04-11] MEDS: CARVEDILOL 3.125 MG TABLET PO SCH (16:36)
[2020-04-11 16:39] VITALS: BP 105/66
[2020-04-11] MEDS: Sodium Bicarbonate 100 MEQ in IV 1/2NS 1000 ML 1,000 ML IV PRN (17:29)
--- NOTE | 2020-04-11 18:24 | NUR ---
MS RN NOTES PATIENT IN BED RESTING COMFORTABLY. ALERT AND ORIENTED X 4. ON ROOM AIR WITH NO SIGNS OF RESPIRATORY DISTRESS, WITH EVEN NON-LABORED BREATHING, AND NO SOB NOTED. SKIN KEPT CLEAN AND DRY. IV ACCESS INTACT AND PATENT ON RIGHT HAND. MET ALL OF PATIENT'S NEEDS. PATIENT PRESENT WITH NO PAIN OR DISCOMFORT AT THIS TIME. SAFETY PRECAUTIONS IMPLEMENTED WITH BED LOCKED, BED IN THE LOWEST POSITION, BED ALARM ON, BILATERAL SIDE RAILS UP, AND CALL LIGHT WITHIN EASY REACH OF PATIENT. WILL ENDORSE PLAN OF CARE TO UPCOMING NURSE.
[2020-04-11 20:00] VITALS: BP_SYST 102; BP_SYST 120; BP_DIAS 69
--- NOTE | 2020-04-11 20:00 | NUR ---
MS RN OPENING NOTE: Received patient from morning nurse. Patient in bed awake, alert, and comfortable. Patient denies pain. Patient AOx4. Patient is on room air. Breathing even and unlabored. NO SOB. Noted IV access on Right hand 24g; patent, flushes well, no redness, or infiltration. Safety precaution is in place, bed in the lowest level, side rails x2 are up, brakes are on, bed alarm is on, and call light is within reach. Will continue to monitor and follow care of plan.
[2020-04-12] MEDS: CEFTRIAXONE 1 G in IV D5W 50 ML IV SCH ×2 (02:20→14:28)
[2020-04-12] MEDS: MORPHINE SULFATE INJ 2 MG/ML DISP.SYRIN IV PRN ×2 (02:20→20:40)
[2020-04-12] MEDS: ALBUMIN 25% 25 GM in PREMIX 1 EA IV SCH (03:22)
--- NOTE | 2020-04-12 06:37 | NUR ---
MS RN CLOSING NOTE: Patient in bed awake and alert. Patient denies pain or discomfort at this time. Patient on room and shows no signs of distress. No SOB, breathing unlabored and equal. Safety precaution in place. Bed in lowest level, side rails x 2 are up, brakes are on, and call light is within reach. Will endorse to next shift.
[2020-04-12 06:42] LABS: EOSINOPHILS % (AUTO) 0.5 % (0.0-6.0); HEMATOCRIT 27 % (39-51); HEMOGLOBIN 8.7 g/dL (13.5-17.5); LYMPHOCYTES % (AUTO) 34.4 % (20.0-44.0); MEAN CORPUSCULAR HGB CONC 32 g/dl (31.0-36.0); MEAN CORPUSCULAR VOLUME 106 fL (80-96); MONOCYTES # (AUTO) 0.8 /CMM (0.1-1.30); MONOCYTES % (AUTO) 9.2 % (2.0-12.0); NEUTROPHILS % (AUTO) 55.9 % (43.0-81.0); PLATELET COUNT (AUTO) 161 /CMM (150-450); RED BLOOD CELL COUNT(AUTO) 2.53 MIL/uL (4.5-6.0); WHITE BLOOD COUNT (AUTO) 8.9 K/uL (4.3-11.0)
[2020-04-12] MEDS: BLOOD SUGAR DIAGNOSTIC 1 EACH STRIP IN SCH ×4 (06:51→21:39)
[2020-04-12] MEDS: LEVOTHYROXINE SODIUM 100 MCG TABLET PO SCH (06:52)
[2020-04-12] MEDS: PANTOPRAZOLE 40 MG TABLET.DR PO SCH (06:52)
[2020-04-12] MEDS: INSULIN REGULAR, HUMAN 100 UNIT/ML 3 ML VIAL SQ PRN ×4 (06:53→21:42)
[2020-04-12 07:06] LABS: ALBUMIN 2.2 g/dL (3.4-5.0); BILIRUBIN,TOTAL 0.4 mg/dL (0.2-1.0); CALCIUM, SERUM 7.8 mg/dL (8.5-10.1); CREATININE 3.2 mg/dL (0.6-1.3); MAGNESIUM 2.7 mg/dL (1.8-2.4); PHOSPHORUS 6.5 mg/dL (2.5-4.9); POTASSIUM 4.7 mmol/L (3.5-5.1); TOTAL PROTEIN, SERUM 4.5 g/dL (6.4-8.2)
--- NOTE | 2020-04-12 07:30 | NUR ---
received pt. no complaints offered.vs stable.skin warm and dry.pleural drainage tube in place rt. abd. covered with dry dressing.
[2020-04-12 08:00] VITALS: BP 117/76
[2020-04-12] MEDS: NEPRO VAN 237 ML CAN PO SCH (09:00)
[2020-04-12] MEDS ORDERED: ABACAVIR SULFATE 300 MG TABLET PO SCH (09:00)
[2020-04-12] MEDS: AMLODIPINE BESYLATE 10 MG TABLET PO SCH (09:00)
[2020-04-12] MEDS: [UNRECOGNIZED DRUG - OTHER] PO SCH (09:14)
[2020-04-12] MEDS: CARVEDILOL 3.125 MG TABLET PO SCH ×2 (09:14→17:00)
[2020-04-12 10:21] LABS: BASOPHILS % (AUTO) 0.1 % (0.0-2.0); EOSINOPHILS % (AUTO) 0.7 % (0.0-6.0); HEMATOCRIT 28 % (39-51); LYMPHOCYTES # (AUTO) 3.1 /CMM (0.8-4.8); LYMPHOCYTES % (AUTO) 34.4 % (20.0-44.0); MEAN CORPUSCULAR HGB CONC 32 g/dl (31.0-36.0); MEAN CORPUSCULAR VOLUME 105 fL (80-96); MONOCYTES # (AUTO) 0.9 /CMM (0.1-1.30); MONOCYTES % (AUTO) 10.1 % (2.0-12.0); NEUTROPHILS # (AUTO) 4.9 /CMM (1.8-8.9); NEUTROPHILS % (AUTO) 54.7 % (43.0-81.0); PLATELET COUNT (AUTO) 153 /CMM (150-450); RED BLOOD CELL COUNT(AUTO) 2.68 MIL/uL (4.5-6.0)
[2020-04-12] MEDS: HEPARIN SODIUM, PORCINE 5000 UNITS/1 ML VIAL SQ SCH ×2 (10:52→20:22)
[2020-04-12] MEDS: EPZICOM PO SCH (10:59)
[2020-04-12] MEDS: Sodium Bicarbonate 100 MEQ in IV 1/2NS 1000 ML 1,000 ML IV PRN (13:57)
--- NOTE | 2020-04-12 14:00 | NUR ---
iv leaking rt. hand,removed and restarted lt. forearm with #22 angio.
[2020-04-12 16:00] VITALS: BP 104/79
--- NOTE | 2020-04-12 18:00 | NUR ---
no chg. in status.
[2020-04-12 20:00] VITALS: BP 97/63
--- NOTE | 2020-04-12 20:13 | NUR ---
MS/RN OPENING NOTE Patient awake in bed. A/O x4. Breath sounds clear, even, unlabored. No acute distress or SOB. On room air. Skin warm, pink, dry, appropriate for ethnicity. CRP <3seconds. Sensations intact. Abdomen soft, large, round. Bowel sounds normoactive in all quadrants. Able to move extremities well, maid housekeeper strength adequate. IV site left forearm 22g. IV patent and intact. No signs of redness or infiltration. Bed in low position, wheels locked, side rails up x2, call light within reach.
--- NOTE | 2020-04-12 20:45 | NUR ---
MS/RN NOTE Patient c/o pain in lower abdomen, aching and throbbing. Pain level 8. Gave prescribed morphine as ordered. VSS. Will continue to monitor.
[2020-04-12] MEDS: HYDROCODONE/APAP 5/325MG 1 EACH TABLET PO PRN (21:46)
--- NOTE | 2020-04-12 21:46 | NUR ---
MS/RN NOTE Patient c/o pain in lower abdomen, aching and throbbing. Pain level 7. Patient states pain is unrelieved by morphine. Administered prescribed norco as ordered. VSS. Will continue to monitor.
[2020-04-12 22:12] VITALS: BP 97/63
[2020-04-13] MEDS: MORPHINE SULFATE INJ 2 MG/ML DISP.SYRIN IV PRN ×2 (00:40→21:13)
--- NOTE | 2020-04-13 00:40 | NUR ---
MS/RN NOTE Patient c/o pain level 8 in lower abdomen. Administered prescribed morphine as ordered. VSS. Will continue to monitor.
[2020-04-13] MEDS: CEFTRIAXONE 1 G in IV D5W 50 ML IV SCH ×2 (01:23→13:26)
[2020-04-13] MEDS: ONDANSETRON HCL/PF 4 MG/2 ML VIAL IVP PRN ×4 (01:35→21:13)
--- NOTE | 2020-04-13 01:43 | NUR ---
MS/RN NOTE Patient c/o of nausea. No emesis present at this time. Administered zofran as ordered. Will continue to monitor.
--- NOTE | 2020-04-13 06:06 | NUR ---
MS/RN CLOSING NOTE Patient awake in bed. A/O x4. Breath sounds clear, even, unlabored. No acute distress or SOB. On room air. Sensations intact. Abdomen soft, large, round. Bowel sounds normoactive in all quadrants. Urine output via urinal, clear, yellow, no sediment. IV site left forearm 22g. IV patent and intact. No signs of redness or infiltration. Bed in low position, wheels locked, side rails up x2, call light within reach.
[2020-04-13 06:15] LABS: BASOPHILS % (AUTO) 0.1 % (0.0-2.0); EOSINOPHILS % (AUTO) 0.6 % (0.0-6.0); HEMATOCRIT 33 % (39-51); HEMOGLOBIN 10.5 g/dL (13.5-17.5); LYMPHOCYTES # (AUTO) 5.2 /CMM (0.8-4.8); MEAN CORPUSCULAR HGB CONC 32 g/dl (31.0-36.0); MEAN CORPUSCULAR VOLUME 107 fL (80-96); MONOCYTES # (AUTO) 1.2 /CMM (0.1-1.30); MONOCYTES % (AUTO) 8.9 % (2.0-12.0); NEUTROPHILS # (AUTO) 7.5 /CMM (1.8-8.9); NEUTROPHILS % (AUTO) 53.4 % (43.0-81.0); PLATELET COUNT (AUTO) 206 /CMM (150-450); RED BLOOD CELL COUNT(AUTO) 3.13 MIL/uL (4.5-6.0)
[2020-04-13 06:30] LABS: CALCIUM, SERUM 7.8 mg/dL (8.5-10.1); CREATININE 3.1 mg/dL (0.6-1.3); MAGNESIUM 2.7 mg/dL (1.8-2.4); PHOSPHORUS 5.8 mg/dL (2.5-4.9); POTASSIUM 4.7 mmol/L (3.5-5.1)
[2020-04-13] MEDS: PANTOPRAZOLE 40 MG TABLET.DR PO SCH (06:30)
[2020-04-13] MEDS: LEVOTHYROXINE SODIUM 100 MCG TABLET PO SCH (06:30)
[2020-04-13] MEDS: BLOOD SUGAR DIAGNOSTIC 1 EACH STRIP IN SCH ×4 (06:31→21:27)
[2020-04-13] MEDS: INSULIN REGULAR, HUMAN 100 UNIT/ML 3 ML VIAL SQ PRN ×3 (06:35→21:31)
--- NOTE | 2020-04-13 07:46 | NUR ---
MS RN OPENING NOTES RECEIVED PATIENT IN BED, AWAKE, A/O X3. PATIENT BREATHING ON ROOM AIR; BREATHING IS EVEN AND UNLABORED, NO SOB PRESENT AN THIS TIME. PATIENT COMPLAINING OF NAUSEA; NAUSEA TREATED WITH PRN ZOFRAN. IV ACCESS ON LFA G#22 INFUSING 1/2 NS AT 50 MLS/HR. SAFETY PRECAUTIONS IN PLACE; BED IN LOW POSITION AND LOCKED, RAILS UP X2, CALL LIGHT WITHIN REACH. WILL CONTINUE TO MONITOR PATIENT.
[2020-04-13 08:00] VITALS: BP 93/68
[2020-04-13] MEDS: CARVEDILOL 3.125 MG TABLET PO SCH ×2 (08:47→16:13)
[2020-04-13] MEDS: AMLODIPINE BESYLATE 10 MG TABLET PO SCH (08:47)
[2020-04-13] MEDS: NEPRO VAN 237 ML CAN PO SCH (08:47)
[2020-04-13] MEDS: [UNRECOGNIZED DRUG - OTHER] PO SCH (08:48)
[2020-04-13] MEDS: EPZICOM PO SCH (08:48)
[2020-04-13] MEDS: HEPARIN SODIUM, PORCINE 5000 UNITS/1 ML VIAL SQ SCH ×2 (08:51→21:17)
[2020-04-13] MEDS: SEVELAMER CARBONATE 800 MG TABLET PO SCH ×2 (12:47→17:44)
--- NOTE | 2020-04-13 13:00 | NUR ---
MS RN NOTES 2 L OF FLUIDS REMOVED FROM PLEURX TUBE
[2020-04-13] MEDS: Sodium Bicarbonate 100 MEQ in IV 1/2NS 1000 ML 1,000 ML IV PRN (13:26)
[2020-04-13 16:00] VITALS: BP 97/71
--- NOTE | 2020-04-13 19:01 | NUR ---
MS RN CLOSING NOTES PATIENT IN BED, AWAKE, A/O X3. PATIENT BREATHING ON ROOM AIR; BREATHING IS EVEN AND UNLABORED, NO SOB PRESENT DURING THE SHIFT. IV ACCESS ON LFA G#22 INFUSING 1/2 NS AT 50 MLS/HR. 2 L OF FLUIDS REMOVED FROM PLEURX ON RLQ. ALL NEEDS ATTENDED TO THROUGHOUT THE DAY. SAFETY PRECAUTIONS IN PLACE; BED IN LOW POSITION AND LOCKED, RAILS UP X2, CALL LIGHT WITHIN REACH. WILL ENDORSE TO CORPORATE OFFICER NURSE.
--- NOTE | 2020-04-13 19:30 | NUR ---
RECEIVED PATIENT RESTING IN BED. PATIENT IS ALERT AND ORIENTED X 3. PATIENT STATES NO PAIN AT THE MOMENT. NO SIGNS OF SOB OR RESPIRATORY DISTRESS NOTED. BREATHING IS EVEN AN UNLABORED. PATIENT IS ON ROOM AIR TOLERATING WELL. PATIENT HAS LEFT FOREARM IV ACCESS IN PLACE RUNNING Na BICARB IN 1/2 NS AT 50ML/HR. SAFETY MEASURES ARE IN PLACE, BED IS LOCKED AND PLACED IN THE LOWEST POSITION WITH SIDERAILS UP X 2. CALL LIGHT IS WITH IN REACH. WILL CONTINUE TO MONITOR PATIENT DURING SHIFT.
[2020-04-13 20:53] VITALS: BP 96/73
[2020-04-14] MEDS: CEFTRIAXONE 1 G in IV D5W 50 ML IV SCH (01:16)
[2020-04-14] MEDS: HYDROCODONE/APAP 5/325MG 1 EACH TABLET PO PRN (01:17)
[2020-04-14] MEDS: ONDANSETRON HCL/PF 4 MG/2 ML VIAL IVP PRN ×2 (03:26→11:08)
[2020-04-14 06:23] LABS: BASOPHILS % (AUTO) 0.1 % (0.0-2.0); EOSINOPHILS % (AUTO) 0.6 % (0.0-6.0); HEMATOCRIT 36 % (39-51); HEMOGLOBIN 11.4 g/dL (13.5-17.5); LYMPHOCYTES # (AUTO) 5.8 /CMM (0.8-4.8); LYMPHOCYTES % (AUTO) 36.7 % (20.0-44.0); MEAN CORPUSCULAR HGB CONC 32 g/dl (31.0-36.0); MEAN CORPUSCULAR VOLUME 105 fL (80-96); MONOCYTES # (AUTO) 1.4 /CMM (0.1-1.30); MONOCYTES % (AUTO) 8.7 % (2.0-12.0); NEUTROPHILS # (AUTO) 8.6 /CMM (1.8-8.9); NEUTROPHILS % (AUTO) 53.9 % (43.0-81.0); PLATELET COUNT (AUTO) 217 /CMM (150-450); RED BLOOD CELL COUNT(AUTO) 3.38 MIL/uL (4.5-6.0); WHITE BLOOD COUNT (AUTO) 15.9 K/uL (4.3-11.0)
[2020-04-14] MEDS: BLOOD SUGAR DIAGNOSTIC 1 EACH STRIP IN SCH ×2 (06:50→11:52)
--- NOTE | 2020-04-14 06:50 | NUR ---
MS/RN CLOSING NOTES PATIENT RESTING IN BED. PATIENT IS ALERT AND ORIENTED X 3. PATIENT STATES NO PAIN AT THE MOMENT. NO SIGNS OF SOB OR RESPIRATORY DISTRESS NOTED. BREATHING IS EVEN AN UNLABORED. PATIENT IS ON ROOM AIR TOLERATING WELL. PATIENT HAS LEFT FOREARM IV ACCESS IN PLACE RUNNING Na BICARB IN 1/2 NS AT 50ML/HR. SAFETY MEASURES ARE IN PLACE, BED IS LOCKED AND PLACED IN THE LOWEST POSITION WITH SIDE RAILS UP X 2. CALL LIGHT IS WITH IN REACH. ALL OF PATIENTS NEEDS HAVE BEEN MET DURING SHIFT. WILL ENDORSE TO DAY SHIFT.
[2020-04-14 06:58] LABS: ALBUMIN 1.5 g/dL (3.4-5.0); BILIRUBIN,TOTAL 0.4 mg/dL (0.2-1.0); CALCIUM, SERUM 8.1 mg/dL (8.5-10.1); MAGNESIUM 2.6 mg/dL (1.8-2.4); PHOSPHORUS 5.5 mg/dL (2.5-4.9); POTASSIUM 4.6 mmol/L (3.5-5.1); TOTAL PROTEIN, SERUM 4.3 g/dL (6.4-8.2)
[2020-04-14 07:15] LABS: CREATININE 2.9 mg/dL (0.6-1.3)
--- NOTE | 2020-04-14 07:40 | NUR ---
RN OPENING NOTE Patient is resting in bed, A/O x4, showing no signs of acute distress or SOB, stable on RA. IV line in the LAC#22g is clean and intact flushing well. Bed is in lowest position, side rails x3 in upright position, call light is within reach, fall safety and aspiration precautions enforced. Will continue with plan of care.
[2020-04-14 08:00] VITALS: BP 155/86
[2020-04-14] MEDS: AMLODIPINE BESYLATE 10 MG TABLET PO SCH (08:29)
[2020-04-14] MEDS: SEVELAMER CARBONATE 800 MG TABLET PO SCH ×2 (08:29→13:04)
[2020-04-14] MEDS: EPZICOM PO SCH (08:29)
[2020-04-14] MEDS: PANTOPRAZOLE 40 MG TABLET.DR PO SCH (08:29)
[2020-04-14] MEDS: [UNRECOGNIZED DRUG - OTHER] PO SCH (08:29)
[2020-04-14] MEDS: CARVEDILOL 3.125 MG TABLET PO SCH (08:30)
[2020-04-14] MEDS: NEPRO VAN 237 ML CAN PO SCH (08:31)
[2020-04-14] MEDS: HEPARIN SODIUM, PORCINE 5000 UNITS/1 ML VIAL SQ SCH (08:31)
[2020-04-14] MEDS: LEVOTHYROXINE SODIUM 100 MCG TABLET PO SCH (08:31)
[2020-04-14] MEDS ORDERED: VIT B CMPLX 3/FA/VIT C/BIOTIN 1 TAB TABLET PO SCH (09:00)
[2020-04-14 09:41] VITALS: BP 99/67
[2020-04-14 10:50] VITALS: BP 114/86
--- NOTE | 2020-04-14 11:18 | NUR ---
RN NOTE Patient C/O nausea, vital signs stable, Zofran IV given. Will continue to monitor.
[2020-04-14] MEDS: INSULIN REGULAR, HUMAN 100 UNIT/ML 3 ML VIAL SQ PRN (11:52)
--- NOTE | 2020-04-14 14:30 | NUR ---
SUPERVISOR SLASHING DEPARTMENT NOTE Patient is medically cleared for discharge. Patient is A/O x4, showing no signs of acute distress or SOB, stable throughout the shift. Vital signs stable. DC instructions provided and patient verbalized understanding. IV line removed and ID band removed. PleurX in place with 0ml drainage; drained 2L yesterday 04/13/20. Skin assessed and skin remains intact. All patient needs met, all due medications given. patient kept clean and dry throughout shift. All belongings are with the patient and meds picked up at pharmacy. Patient was picked up by spouse in private car en route to home.
== END 2020-04-14 14:15 | disposition home or self-care (01) | DRG 871 ==
LOC: ER 18:41 → TELE 23:54 → MED 04-11 11:34
PROVIDERS: ADMIT Nurse Practitioner Acute Care; ATTEND Nurse Practitioner Acute Care
DX: A41.9 Sepsis, unspecified organism (principal); N17.0 Acute kidney failure with tubular necrosis; E43 Unspecified severe protein-calorie malnutrition; K76.7 Hepatorenal syndrome; E88.3 Tumor lysis syndrome; K65.2 Spontaneous bacterial peritonitis; E87.1 Hypo-osmolality and hyponatremia; C25.9 Malignant neoplasm of pancreas, unspecified; R18.8 Other ascites; E87.2 Acidosis; C79.89 Secondary malignant neoplasm of other specified sites; E87.5 Hyperkalemia; E03.9 Hypothyroidism, unspecified; E11.9 Type 2 diabetes mellitus without complications; I10 Essential (primary) hypertension; I25.10 Atherosclerotic heart disease of native coronary artery without angina pectoris; Z95.1 Presence of aortocoronary bypass graft; K74.60 Unspecified cirrhosis of liver; Z92.21 Personal history of antineoplastic chemotherapy; E88.09 Other disorders of plasma-protein metabolism, not elsewhere classified; M62.50 Muscle wasting and atrophy, not elsewhere classified, unspecified site; Z68.24 Body mass index [BMI] 24.0-24.9, adult; I95.9 Hypotension, unspecified; N25.89 Other disorders resulting from impaired renal tubular function; Z79.899 Other long term (current) drug therapy
CPT/HCPCS: 36415; 71045-TC; 76700-TC; 76770-TC; 80048-TC; 80053-TC; 80061-TC; 80076-TC; 81000-TC; 82088; 82533; 82550-TC; 82570-TC; 82962-TC; 83735-TC; 83970; 84100-TC; 84155; 84155-TC; 84165; 84244; 84300-TC; 84484-TC; 84550-TC; 85025-TC; 87081-TC; 87086-TC; 97110-TC; 97116-TC; 97530-TC; A4216; G0378; J0610; J0696; J1644; J1815; J2270; J2405; J3490; J7030; J7040; J7050; J7060; P9047